=== PATIENT | female | born 1995 | race Caucasian/White ===

== ENCOUNTER → 2017-11-18 19:09 | Outpatient (CLI) | payer MEDICARE, SELFPAY ==
[2017-11-24 09:58] LABS: HPV APTIMA, High Risk Negative (Negative)
== END ==
PROVIDERS: PCP Obstetrics & Gynecology; Visit Provider Obstetrics & Gynecology
DX: Z12.4 Encounter for screening for malignant neoplasm of cervix (principal)
CPT/HCPCS: 88175; G0145

== ENCOUNTER → 2021-06-28 | Outpatient (CLI) | payer MEDICARE, OTHER, SELFPAY ==
[2021-07-02 21:28] LABS: HPV Reflexed? NOT INDICATED
== END | disposition home or self-care (01) ==
PROVIDERS: PCP Obstetrics & Gynecology; Visit Provider Obstetrics & Gynecology
DX: Z12.4 Encounter for screening for malignant neoplasm of cervix (principal)
CPT/HCPCS: 88175; G0145

== ENCOUNTER → 2022-11-04 | Outpatient (CLI) | payer MEDICARE, OTHER, SELFPAY ==
[2022-11-04 16:45] LABS: NATERA MAILED SPECIMEN
== END | disposition home or self-care (01) ==
LOC: PAVLAB 15:40
PROVIDERS: Referring Provider Obstetrics & Gynecology; Visit Provider Obstetrics & Gynecology
DX: Z15.01 Genetic susceptibility to malignant neoplasm of breast (principal)
CPT/HCPCS: 36415

== ENCOUNTER → 2023-08-11 | Outpatient (CLI) | payer MEDICARE, OTHER, SELFPAY ==
--- OUTSIDE RECORDS SUMMARY | 2023-08-11 12:26 | XMS RPT_ITS | CCD ---
Author Name Unknown Address [address] [place] [address] Organization [facility] Care Team Providers Care Oil Agent Name Role Phone Pamelamarcellus Jovanna Unavailable Unavailable Ant Rapp Unavailable Unavailable Tamela DAVID, Ant Huber Primary Care Provider ANT RAPP Primary Care Unavailable GARIMA BRADY Attending Unavailable TAMELA, ANT A Primary Care Unavailable MONROE STARKS Attending Unavailable Ant Rapp MD Primary Care Provider JANA TONG Attending Unavailable TESTRAKE, JANA Referring Unavailable TAMELA, ANT A Primary Care Unavailable TESTRAKE, JANA Referring Unavailable TAMELA, ANT A Primary Care Unavailable WILL ALBRIGHT Referring Unavailable TAMELA, ANT A Primary Care Unavailable TESTRAKEJANA Attending Unavailable TESTRAKE, JANA Referring Unavailable TAMELA, ANT A Primary Care Unavailable TESTRAKE, JANA Attending Unavailable TESTRAKE, JANA Referring Unavailable TAMELA, ANT A Primary Care Unavailable WILL ALBRIGHT Referring Unavailable TAMELA, ANT A Primary Care Unavailable DARIUSZ WILL Referring Unavailable TAMELA, ANT A Primary Care Unavailable TESTRAKE, JANA Attending Unavailable DARIUSZ, WILL Referring Unavailable TAMELA, ANT A Primary Care Unavailable TESTRAKE, JANA Referring Unavailable TAMELA, ANT A Primary Care Unavailable TESTRAKE, JANA Attending Unavailable TESTRAKE, JANA Referring Unavailable TAMELA, ANT A Primary Care Unavailable TESTRAKE, JANA Attending Unavailable TESTRAKE, JANA Referring Unavailable TAMELA, ANT A Primary Care Unavailable WILL ALBRIGHT Attending Unavailable DARIUSZ, WILL Referring Unavailable TAMELA, ANT A Primary Care Unavailable SONDRA GROVES Attending Unavailable TAMELA, ANT A Primary Care Unavailable WILL ALBRIGHT Attending Unavailable WILL ALBRIGHT Referring Unavailable ANT RAPP Primary Care Unavailable SONDRA GROVES Referring Unavailable ANT RAPP Primary Care Unavailable Ant Rapp MD Primary Care Provider [phone] Allergies Allergy Classification Reported Allergen(s) Allergy Type Date of Onset Reaction(s) Facility (3 sources) Penicillins; Translations: [Penicillins] Allergy to drug (finding) 4 Unknown [facility] Repository (14 sources) Penicillins Drug Allergy 4 Rash [facility] Work Phone: (19 sources) Mmr [Other] Propensity to adverse reactions 4 Mental Status Change, Rash [facility] Work Phone: (1 source) MEASLES, MUMPS, RUBELLA,AND VARICELLA LIVE VACCINE; Translations: [MEASLES, MUMPS, RUBELLA,AND VARICELLA LIVE VACCINE] Propensity to adverse reactions to drug (disorder) 4 [facility]ository (5 sources) Penicillins Drug Allergy 4 Rash [facility] Work Phone: (1 source) OTHER; Translations: [OTHER] Propensity to adverse reactions (disorder) 4 [facility] Repository Medications Current Medications Medication Drug Class(es) Dates Sig (Normalized) Sig (Original) acetaminophen 325 mg / oxyCODONE hydrochloride 5 mg oral tablet (2 sources) Opioid Agonist Start: 10-12-2021 End: 10-22-2021 take 1 tablet by mouth every eight hours as needed for pain oxyCODONE-acetami nophen (PERCOCET) 5-325 mg tablet Indications: Hammer toe of right foot Take 1 tablet by mouth every 8 hours as needed for pain for up to 7 days. 21 tablet 0 10/12/2021 10/22/2021 Active Completed/Discontinued Medications Medication Drug Class(es) Dates Sig (Normalized) Sig (Original) amitriptyline hydrochloride 25 mg oral tablet (20 sources) Tricyclic Antidepressant Start: 06-16-2023 take 1 tablet by mouth once daily at bedtime amitriptyline (ELAVIL) 25 mg tablet Take 1 tablet by mouth daily at bedtime. 30 tablet 0 06/16/2023 Active Problems Active Problems Problem Classification Problem Date Documented Date Episodic/Chronic Acquired foot deformities (20 sources) Hammer toe; Translations: [Other hammer toe(s) (acquired), right foot] Onset: 07-10-2021 Chronic Adjustment disorders (19 sources) Reactive depression (situational); Translations: [Adjustment disorder with depressed mood] Onset: 10-01-2021 Chronic Diseases of white blood cells (1 source) Elevated white blood cell count, unspecified; Translations: [Leukocytosis, unspecified type] Onset: 10-01-2021 Chronic Disorders usually diagnosed in infancy, childhood, or adolescence (20 sources) Autistic disorder; Translations: [Autistic disorder] Onset: 03-08-2016 06-17-2016 Chronic Esophageal disorders (19 sources) Gastroesophageal reflux disease; Translations: [Gastro-esophageal reflux disease without esophagitis] Onset: 10-01-2021 Chronic Headache; including migraine (2 sources) Headache; including migraine; Translations: [Headache, unspecified] Onset: 04-02-2022 Nutritional deficiencies (20 sources) Vitamin D deficiency; Translations: [Vitamin D deficiency, unspecified] Onset: 03-30-2019 03-30-2019 Chronic Other connective tissue disease (1 source) Pain of toe of right foot; Translations: [Pain in right toe(s)] Episodic Other nutritional; endocrine; and metabolic disorders (20 sources) Body mass index 40+ - severely obese; Translations: [Morbid (severe) obesity due to excess calories] Onset: 09-19-2017 03-13-2018 Chronic Other nutritional; endocrine; and metabolic disorders (1 source) Morbid (severe) obesity due to excess calories; Translations: [Obesity, Class III, BMI 40-49.9 (morbid obesity) (HCC)] Onset: 03-13-2018 Chronic Other upper respiratory disease (19 sources) Seasonal allergy; Translations: [Other seasonal allergic rhinitis] Onset: 06-17-2016 06-17-2016 Chronic Residual codes; unclassified (3 sources) Postoperative state; Translations: [Other specified postprocedural states] Episodic Thyroid disorders (20 sources) Acquired hypothyroidism; Translations: [Hypothyroidism, unspecified] Onset: 03-08-2016 03-08-2016 Chronic Viral infection (2 sources) Viral infection, unspecified; Translations: [Viral infection, unspecified] Onset: 04-02-2022 Episodic Past or Other Problems Problem Classification Problem Date Documented Date Episodic/Chronic Attention-deficit, conduct, and disruptive behavior disorders (20 sources) Obsessive behavior; Translations: [Obsessive-compulsive behavior] Onset: 12-02-2017 03-13-2018 Episodic Developmental disorders (8 sources) Borderline intellectual disability; Translations: [Borderline intellectual functioning] Onset: 11-19-2021 Episodic Headache; including migraine (20 sources) Frequent headache; Translations: [Frequent headaches] Onset: 03-13-2018 03-13-2018 Episodic Immunizations and screening for infectious disease (2 sources) Encounter for screening for other viral diseases; Translations: [Encounter for screening for human immunodeficiency virus [HIV]] Onset: 11-19-2021 Episodic Other circulatory disease (1 source) Other specified symptoms and signs involving the circulatory and respiratory systems; Translations: [Diminished pulses in lower extremity] Onset: 07-10-2021 Episodic Other connective tissue disease (1 source) Pain in right toe(s); Translations: [Toe pain, right] Onset: 07-09-2021 Episodic Other nutritional; endocrine; and metabolic disorders (19 sources) Abnormal weight gain; Translations: [Abnormal weight gain] Onset: 12-22-2003 12-22-2003 Episodic Other screening for suspected conditions (not mental disorders or infectious disease) (20 sources) Patient encounter status; Translations: [Encounter for screening for diabetes mellitus] Onset: 06-17-2016 06-17-2016 Episodic Residual codes; unclassified (19 sources) Family history of diabetes mellitus; Translations: [Family history of diabetes mellitus] Onset: 03-30-2019 03-30-2019 Episodic Superficial injury; contusion (20 sources) Contusion of eye; Translations: [Contusion of eyeball and orbital tissues, left eye, initial encounter] Onset: 02-16-2019 02-16-2019 Episodic Results Test Name Value Interpretation Reference Range Facil ity Vital Signs Date Time Vital Sign Value Performing Clinician Facility 11-19-2021 11:44-0400 Body temperature 98.91 [degF] Will Albright PA-C Work Phone: [facility] 11-19-2021 11:44-0400 Body weight 113.85 kg Will Albright PA-C Work Phone: [facility] 11-19-2021 11:44-0400 Diastolic blood pressure 80 mm[Hg] Will SAWYER-C Work Phone: [facility] 11-19-2021 11:44-0400 Heart rate 72 /min Will Albright PA-C Work Phone: [facility] 11-19-2021 11:44-0400 Respiratory rate 18 /min Will Albright PA-C Work Phone: [facility] 11-19-2021 11:44-0400 Systolic blood pressure 110 mm[Hg] Will Albright PA-C Work Phone: [facility] 10-01-2021 08:09-0400 Body height 163.8 cm Pacc 1 Work Phone: [facility] 10-01-2021 08:09-0400 Body temperature 97.9 [degF] Pacc 1 Work Phone: [facility] 10-01-2021 08:09-0400 Body weight 114.76 kg Pacc 1 Work Phone: [facility] 10-01-2021 08:09-0400 Diastolic blood pressure 80 mm[Hg] Pacc 1 Work Phone: [facility] 10-01-2021 08:09-0400 Heart rate 116 /min Pacc 1 Work Phone: [facility] 10-01-2021 08:09-0400 Respiratory rate 16 /min Pacc 1 Work Phone: [facility] 10-01-2021 08:09-0400 SaO2% (BldA) [Mass fraction] 98 % Pacc 1 Work Phone: [facility] 10-01-2021 08:09-0400 Systolic blood pressure 110 mm[Hg] Pacc 1 Work Phone: [facility] 04-13-2020 15:50-0400 BMI (Body Mass Index) 43.77 kg/m2 [facility] Work Phone: 04-13-2020 15:50-0400 Body weight 115.67 kg Jovannalashanda Montaño [facility] Work Phone: 04-13-2020 15:50-0400 BP Diastolic 78 mm[Hg] Jovannalashanda Montaño [facility] Work Phone: 04-13-2020 15:50-0400 BP Systolic 128 mm[Hg] Jovannalashanda Montaño [facility] Work Phone: 04-13-2020 15:50-0400 BSA (Body Surface Area) 2.17 m2 Jovannalashanda Montaño [facility] Work Phone: 04-13-2020 15:50-0400 Height 162.56 cm Jovannalashanda Montaño [facility] Work Phone: Encounters Encounter Date Encounter Type Care Provider Facility Start: 06-18-2023 Refgilberto Momin Work Phone: [facility] Procedures Date Procedure Procedure Detail Performing Clinician Start: 08-25-2020 Adult depression screening assessment Jana Tong Work Phone: Plan of Treatment Date Care Activity Detail Author Start: 06-20-2026 Pap Testing Pap Testing [facility] Start: 06-20-2026 Screening for malign ant neoplasm of cervix Pap Testing [facility] Start: 06-17-2026 Urine microalbumin profile [facility] Start: 06-20-2024 PAP TESTING PAP TESTING [facility] Start: 05-21-2023 ANNUAL PCP TEAM SLIP FILLER [place] DISEASE VISIT ANNUAL PCP TEAM CHRONIC DISEASE VISIT [facility] Start: 05-21-2023 COVID-19 VACCINE (2 - Booster for Checo series) COVID-19 VACCINE (2 - Booster for Checo series) [facility] Immunizations Immunization Date Immunization Notes Care Provider Fa cility 10-26-2020 COVID-19 vaccine (CHECO) Jana Tong Work Phone: [facility] 04-17-2018 influenza virus vacc ine, unspecified formulation Sondra Groves MD Work Phone: [facility] 12-19-2016 tetanus toxoid, redu rosa m diphtheria toxoid, and acellular pertussis vaccine, adsorbed Jana Tong Work Phone: [facility] 10-26-2013 measles, mumps and rubella virus vaccine Will Albright PA-C Work Phone: [facility] 07-02-1994 diphtheria, tetanus toxoids and acellular pertussis vaccine, unspecified formulation Will Albright PA-C Work Phone: [facility] 07-02-1994 haemophilus influenz ae type b vaccine, conjugate unspecified formulation Will Albright PA-C Work Phone: [facility] 07-02-1994 hepatitis B vaccine, pediatric or pediatric/adolescent dosage Will Albright PA-C Work Phone: [facility] 07-02-1994 measles, mumps and rubella virus vaccine Will Albright PA-C Work Phone: [facility] 1993 hepatitis B vaccine, pediatric or pediatric/adolescent dosage Will Albright PA-C Work Phone: [facility] 1993 haemophilus influenz ae type b vaccine, conjugate unspecified formulation Will Albright PA-C Work Phone: [facility] 1993 hepatitis B vaccine, pediatric or pediatric/adolescent dosage Will Albright PA-C Work Phone: [facility] 1993 diphtheria, tetanus toxoids and pertussis vaccine Wlil Albright PA-C Work Phone: [facility] 1993 trivalent poliovirus vaccine, live, oral Will Albright PA-C Work Phone: [facility] 1993 diphtheria, tetanus toxoids and pertussis vaccine Will Albright PA-C Work Phone: [facility] 1993 haemophilus influenz ae type b vaccine, conjugate unspecified formulation Will Albright PA-C Work Phone: [facility] 1993 trivalent poliovirus vaccine, live, oral Will Albright PA-C Work Phone: [facility] 1993 diphtheria, tetanus toxoids and pertussis vaccine Will Albright PA-C Work Phone: [facility] 1993 haemophilus influenz ae type b vaccine, conjugate unspecified formulation Will Albright PA-C Work Phone: [facility] 1993 trivalent poliovirus vaccine, live, oral Will Albrgiht PA-C Work Phone: [facility] Payers Date Payer Category Payer Private Health Insurance [employer] PPO [id number] 2019-Present [phone] [address] [place] [address] PPO [id number] 2019 Private Health Insurance [id number] 2019 Private Health Insurance [employer] PPO [id number] 2019-Present [phone] [address] [place] [address] PPO [id number] 2015 Medicare MEDICARE MEDICAR E A AND B [id number] 2015-Present [phone] [place] [address] Medicare [id number] 2015 Medicare [id number] 2015 Medicare MEDICARE MEDICAR E A AND B [id number] 2015-Present [phone] [place] [address] Medicare [id number] 1993 Unknown [id number] 1993 Unknown [id number] Social History Date Type Detail Facility Assertion Tobacco smoking consumption unknown (finding) [facility] Work Phone: Start: 06-17-2016 End: 05-21-2022 Tobacco smoking status NHIS Never smoked tobacco [facility] Work Phone: Start: 06-17-2016 End: 05-21-2022 Tobacco use and exposure Smokeless tobacco non-user [facility] Work Phone: Start: 05-22-2021 Alcohol intake Current drinker of alcohol (finding) [facility] Start: 08-25-2020 History SDOH Alcohol Frequency 1 [facility] Start: 08-25-2020 History SDOH Alcohol Std Drinks 98 [facility] Start: 08-25-2020 History SDOH Social Connections Membership 2 [facility] Start: 08-25-2020 History SDOH Social Connections Living 7 [facility] Start: 08-25-2020 History SDOH Physical Activity DPW 0 [facility] Start: 08-25-2020 History SDOH Stress 5 [facility] Start: 07-28-2019 Education 12 [facility] Start: 1995 Sex Assigned At Female [facility] Start: 10-01-2021 End: 05-21-2022 Alcohol intake Ex-drinker (finding) [facility] Start: 09-21-2021 End: 11-19-2021 Exposure to SARS-CoV-2 (event) Not sure [facility] Start: 08-25-2020 End: 07-26-2022 History of Social function [facility] Start: 08-25-2020 End: 07-26-2022 Social connection and isolation panel [facility] Do you belong to any clubs or organizations such as anglican groups, unions, fraternal or athletic groups, or school groups? No [facility] Are you now , , , , never or living with a partner? Never [facility] How often to you hav e a drink containing alcohol? Never [facility] How many standard dr inks containing alcohol do you have on a typical day? Patient refused [facility] Do you feel stress - tense, restless, nervous, or anxious, or unable to sleep at night because your mind is troubled all the time - these days [OSQ] Very much [facility] (I/We) worried cicicelso er (my/our) food would run out before (I/we) got money to buy more. Never true [facility] Start: 03-11-2020 Gender identity Identifies as female gender (finding) [facility] Start: 03-11-2020 Sexual orientation Heterosexual (finding) [facility] Functional Status Date Assessment Result Facility NEGATED: Highlighted row Functional performance Functional status health issues are not documented Disease [facility] Work Phone: Mental Status Date Assessment Result Facility NEGATED: Highlighted row Cognitive function [Interpretation] Cognitive status health issues are not documented Disease [facility] Work Phone: Clinical Notes 06-28-2021 to 06-19-2023 Telephone Encounter - Lauren Richards MA - 06/19/2023 12:24 PM ESTTelephone Encounter - Theresa Perez RN - 05/23/2023 10:51 AM Jenise Groves MD - 05/14/2022 1:27 PM EST Note Date & Type Note Facility 06-19-2023 Miscellaneous Notes New script for 30 sent to RA Llanos on 06/16 by LINDA. Patient notified via [employer] message. Lauren Richards MA documented in this encounter [facility] 05-23-2023 Miscellaneous Notes Requester: Pharmacy Last Visit in Endocrinology: Provider name: Sondra Groves DO , Date 05/14/2022 Next Scheduled Appt in Endo: Visit date not found Last Refill: Number of Refills given: 1 PSS NOTE: Patient needs scheduled appointment [facility]. Requested Prescriptions Pending Prescriptions Disp Refills levothyroxine 50 mcg cap [Pharmacy Med Name: LEVOTHYROXINE 50 MCG CAPSULE] 90 capsule 1 Sig: take 1 capsule by mouth daily before breakfast Please review and advise. Theresa Perez RN documented in this encounter [facility] 11-01-2022 Miscellaneous Notes Patient has been identified by name and date of : Yes, Provider Dr. Rapp Date 11/01/22 Time 12:41 pm Patient phones for refill(s): Requested Prescriptions Pending Prescriptions Disp Refills amitriptyline (ELAVIL) 25 mg tablet [Pharmacy Med Name: AMITRIPTYLINE HCL 25 MG TAB] 30 tablet 5 Sig: take 1 tablet by mouth at bedtime Date of last office visit in primary care: 05/21/22 next apt 05/26/23 Last 2 Encounter Wt Readings: Date: Wt: 05/21/2022 111.6 kg (246 lb) 11/19/2021 113.9 kg (251 lb) Previous labs/tests for medication: Not applicable Thank you. Jill Michel LPN documented in this encounter [facility] 05-21-2022 Note HNO ID: [id number] Author: Will Albright PA-C Service: ? Author Type: Physician Bus Attendant Type: Progress Notes Filed: 05/21/2022 11:17 AM Note Text: Medicare Yearly Visit Medical B eligibilty date unable to find Date of last exam 05/22/21 PAST MEDICAL HISTORY Diagnosis Date Acquired hypothyroidism 03/08/2016 Autism Frequent headaches 03/13/2018 Obesity, Class III, BMI 40-49.9 (morbid obesity) (HCC) 09/19/2017 Obsessive behavior 12/02/2017 Seasonal allergies 06/17/2016 PAST SURGICAL HISTORY Procedure Laterality Date PAST SURGICAL HISTORY OF wisdom teeth removal, excess gum removal PAST SURGICAL HISTORY OF 02/2020 choleystectomy TENOTOMY OPEN EXTENSOR FOOT/TOE EACH TENDON R foot 4th toe ALLERGIES: Mmr [Other] and Penicillins Medications reviewed: Yes FAMILY HISTORY Problem Relation Age of Onset Cancer Mother thyroid and lung Thyroid Mother hypothyroid Skin Cancer Mother melanoma other (lung cancer) Mother Common on maternal side of family other (thryoid cancer) Mother COPD Father Diabetes Father Paternal side of family Obstructive Sleep Apnea Father Coronary Artery Disease Brother 28 Diabetes Other paternal side Thyroid Other maternal side other (vitamin d issues) Other SOCIAL HISTORY: Social History Tobacco Use Smoking status: Never Smokeless tobacco: Never Vaping Use Vaping Use: Never used Substance Use Topics Alcohol use: Not Currently Drug use: No Celena gets sporadic irregular exercise. She watches her diet for sodium, low fat and low cholesterol most of the time. List of current specialists seen: Endo End of Live Planning discussed including patients advanced directive wishes: Yes I am willing to follow Celena's advanced directives. Functional Ability/Safety Screen 1. Was the patient's timed Up and Go test unsteady or longer than 30 seconds? No 2. Does the patient need help with the phone, transportation, shopping,preparing meals, housework, laundry, medications or managing money? No (some yes with dx of autism) 3. Does your home have rugs in the hallway, lack of grab bars in the bathroom, lack of handrails on the stairs or have poor lighting (N). Yes Hearing Evaluation: normal PHYSICAL EXAM BP 118/82 (BP Site: Left Arm, BP Position: Sitting, BP Cuff Size: Large Adult) Pulse 84 Temp 36.9 ?C (98.5 ?F) Resp 18 Ht 164 cm (5' 4.57 ) Wt 111.6 kg (246 lb) LMP 04/25/2022 (Approximate) BMI 41.49 kg/m? Alert and oriented X 3: YES Body mass index is 41.49 kg/m?. Visual acuity: sees opto ASSESSMENT/PLAN: 27 year old female The following prevention plan was discussed during the office visit and provided to the patient: See below Will Albright PA-C Chief Complaint Patient presents with: Yearly Exam HPI Celena Murray is a 27 year old female who presents here today for extensive exam. Patient with hx of autism, depression, hypothyroidism, Gerd, frequent headaches, allergies, obesity and those as below. Last 3 Encounter Wt Readings: Date: Wt: 05/21/2022 111.6 kg (246 lb) 11/19/2021 113.9 kg (251 lb) 10/01/2021 114.8 kg (253 lb) Past medical history, appointments, medications, allergies reviewed. Previous Medical History PAST MEDICAL HISTORY Diagnosis Date Acquired hypothyroidism 03/08/2016 Autism Frequent headaches 03/13/2018 Obesity, Class III, BMI 40-49.9 (morbid obesity) (HCC) 09/19/2017 Obsessive behavior 12/02/2017 Seasonal allergies 06/17/2016 Previous Surgical History PAST SURGICAL HISTORY Procedure Laterality Date PAST SURGICAL HISTORY OF wisdom teeth removal, excess gum removal PAST SURGICAL HISTORY OF 02/2020 choleystectomy TENOTOMY OPEN EXTENSOR FOOT/TOE EACH TENDON R foot 4th toe Family History FAMILY HISTORY Problem Relation Age of Onset Cancer Mother thyroid and lung Thyroid Mother hypothyroid Skin Cancer Mother melanoma other (lung cancer) Mother Common on maternal side of family other (thryoid cancer) Mother COPD Father Diabetes Father Paternal side of family Obstructive Sleep Apnea Father Coronary Artery Disease Brother 28 Diabetes Other paternal side Thyroid Other maternal side other (vitamin d issues) Other Patient Allergies ALLERGIES Allergen Reactions Mmr [Other] Mental Status Change, Rash Penicillins Rash Current Medications Current Outpatient Medications on File Prior to Visit Medication Sig levothyroxine (TIROSINT) 50 mcg cap Take 1 capsule by mouth daily before breakfast. amitriptyline (ELAVIL) 25 mg tablet Take 1 tablet by mouth daily at bedtime. Olopatadine 0.2 % drop Use 1 Drop in both eyes as needed. [id number] (REFRESH OPTIVE ADVANCED) 0.5-1-0.5 % drop Use 1 Drop in the left eye four times daily. cholecalciferol (VITAMIN D3) 5,000 unit tab Take 5,000 Units by mouth every 48 hours. Fexofenadine-Pseudoephedrine 180-240 mg pe (more content not included)... [facility] 05-14-2022 Note HNO ID: [id number] Author: Sondra Groves MD Service: ? Author Type: Physician Type: Progress Notes Filed: 05/14/2022 1:41 PM Note Text: [facility]OLOGY [facility] This visit was conducted via my chart zoom Subjective: Celena Murray is a 27 year old female here for hypothyroidism, weight gain and vitamin D deficiency follow up. History in brief, she was diagnosed with a thyroid disorder at age 10 yrs, when she suddenly gained weight and TSH was >5. Current treatment: Tirosint 50 mcg daily Prior treatment: Tirosint 25 mcg 6 days a week and 50 mcg on sundays Previous treatment: PROSTHETIC DENTIST thyroid 15 mg 4 days a week and 30 mg 3 days a week She developed arthralgia due to PROSTHETIC DENTIST thyroid She didn't take PROSTHETIC DENTIST thyroid for 4-6 months, thinking that she didn't have refill on her Rx. Recently, restarted taking it 2-3 weeks ago. Since that time, she has noticed diffuse arthralgia She is planning to leave her current job due to the related stress Wants to work morning shifts General symptoms: Fatigue: Yes, by the end of the day Energy level is good Weight change: No Previously, she tried Contrave Appetite change: No Menstrual irregularities: No Change in bowel habits: No Temperature intolerance: heat intolerance Dry skin:Yes, only during winter time. She has chronic headaches and had been Elavil She tried to go off Elavil and headaches restarted. She had a severe migraine, which prompted a visit to ER Previously, she was also found to have vitamin D deficiency She is currently on immunocore-it has 333 international unit(s) vitamin D There is a family history of diabetes Patient has autism Her mother had Papillary thyroid cancer Patient's mother is on cytomel and wants to inquire if patient might benefit from Cytomel. Answers submitted by the patient for this visit: Core Review of Systems (Submitted on 05/14/2022) Fever : No Night Sweats: No Recent Unintentional Weight Change: No Nasal Congestion: No Hearing Loss: No Vision Disturbance: No A Cough: No Difficulty Breathing?: No Chest Pain: No Irregular Heart Beat: No Leg Swelling: No Nausea: No Diarrhea: No Black Tarry Stools: No Difficulty Urinating?: No Awaken at Night More Than Once to Urinate?: No Joint Pain or Stiffness: No Muscle Aches: No Leg or Foot Discomfort at Night?: No A Rash: No Dizziness: No Headaches: Yes Memory Loss: No Seizures: No ALLERGIES: ALLERGIES Allergen Reactions Mmr [Other] Mental Status Change, Rash Penicillins Rash MEDICATIONS: Current Outpatient Medications on File Prior to Visit Medication Sig Levothyroxine (TIROSINT) 25 mcg cap Take 1 capsule by mouth six times a week. And 2 capsules on sundays fheqmhumrldctiz-lqworco-rnro98 (REFRESH OPTIVE ADVANCED) 0.5-1-0.5 % drop Use 1 Drop in the left eye four times daily. cholecalciferol (VITAMIN D-3) 5,000 unit tab Take 5,000 Units by mouth every 48 hours. Fexofenadine-Pseudoephedrine (MICAH-D 24 HOUR) 180-240 mg per 24 hr tablet Take 1 tablet by mouth once daily. No current facility-administered medications on file prior to visit. PAST MEDICAL HISTORY: PAST MEDICAL HISTORY Diagnosis Date Acquired hypothyroidism 03/08/2016 Autism Frequent headaches 03/13/2018 Obesity, Class III, BMI 40-49.9 (morbid obesity) (HCC) 09/19/2017 Obsessive behavior 12/02/2017 Seasonal allergies 06/17/2016 PHYSICAL EXAM: General: Alert and oriented x3, no acute distress LAB: TSH Date Value Ref Range Status 06/28/2021 1.510 0.270 - 4.200 uU/mL Final Comment: If the patient is , TSH reference range varies by gestational period: First Trimester (weeks 9-12): 0.180-2.990 mcIU/mL Second Trimester: 0.110-3.980 mcIU/mL Third Trimester: 0.480-4.710 mcIU/mL Sascha Gaspar et al. A Practical Approach for the Verifications and Determination of Site- and Trimester-Specific Reference Intervals for Thyroid Function tests in . Thyroid, 2019:29:3:412-420. Darío E, et al. 2017 Guidelines of the [place] Thyroid Association for the Diagnosis and Management of Thyroid Disease during and the . Thyroid, 2017:27:3:315-389. Free T4 Date Value Ref Range Status 06/28/2021 1.2 0.9 - 1.7 ng/dL Final Latest Reference Range AND Units 11/19/21 12:47 Vitamin D 25 Hydroxy 31.0 - 80.0 ng/mL 52.3 ASSESSMENT/PLAN: 1) Primary hypothyroidism 2) Vitamin D deficiency Clinically she appears euthyoid Update thyroid function test Then will adjust Tirosint dose if needed Saliva cortisol was normal in 2017, which excludes [place]'s Syndrome Fasting insulin, glucose and A1c were normal Vitamin D level is optimal Continue vitamin D supplements I will send patient a message in my chart once the lab results become available. Follow up in 12 months, if thyroid function are normal Sondra Groves MD 05/14/22 [facility] 05-14-2022 History of Presen t illness Narrative ENDOCRINOLOGY [facility] VISIT This visit was conducted via my chart zoom Subjective: Celena Murray is a 27 year old female here for hypothyroidism, weight gain and vitamin D deficiency follow up. History in brief, she was diagnosed with a thyroid disorder at age 10 yrs, when she suddenly gained weight and TSH was >5. Current treatment: Tirosint 50 mcg daily Prior treatment: Tirosint 25 mcg 6 days a week and 50 mcg on sundays Previous treatment: PROSTHETIC DENTIST thyroid 15 mg 4 days a week and 30 mg 3 days a week She developed arthralgia due to PROSTHETIC DENTIST thyroid She didn't take PROSTHETIC DENTIST thyroid for 4-6 months, thinking that she didn't have refill on her Rx. Recently, restarted taking it 2-3 weeks ago. Since that time, she has noticed diffuse arthralgia She is planning to leave her current job due to the related stress Wants to work morning shifts General symptoms: Fatigue: Yes, by the end of the day Energy level is good Weight change: No Previously, she tried Contrave Appetite change: No Menstrual irregularities: No Change in bowel habits: No Temperature intolerance: heat intolerance Dry skin:Yes, only during winter time. She has chronic headaches and had been Elavil She tried to go off Elavil and headaches restarted. She had a severe migraine, which prompted a visit to ER Previously, she was also found to have vitamin D deficiency She is currently on immunocore-it has 333 international unit(s) vitamin D There is a family history of diabetes Patient has autism Her mother had Papillary thyroid cancer Patient's mother is on cytomel and wants to inquire if patient might benefit from Cytomel. Answers submitted by the patient for this visit: Core Review of Systems (Submitted on 05/14/2022) Fever : No Night Sweats: No Recent Unintentional Weight Change: No Nasal Congestion: No Hearing Loss: No Vision Disturbance: No A Cough: No Difficulty Breathing?: No Chest Pain: No Irregular Heart Beat: No Leg Swelling: No Nausea: No Diarrhea: No Black Tarry Stools: No Difficulty Urinating?: No Awaken at Night More Than Once to Urinate?: No Joint Pain or Stiffness: No Muscle Aches: No Leg or Foot Discomfort at Night?: No A Rash: No Dizziness: No Headaches: Yes Memory Loss: No Seizures: No ALLERGIES: ALLERGIES Allergen Reactions Mmr [Other] Mental Status Change, Rash Penicillins Rash MEDICATIONS: Current Outpatient Medications on File Prior to Visit Medication Sig Levothyroxine (TIROSINT) 25 mcg cap Take 1 capsule by mouth six times a week. And 2 capsules on sundays yewirykjdwsdizd-hcfhbgu-wdhx49 (REFRESH OPTIVE ADVANCED) 0.5-1-0.5 % drop Use 1 Drop in the left eye four times daily. cholecalciferol (VITAMIN D-3) 5,000 unit tab Take 5,000 Units by mouth every 48 hours. Fexofenadine-Pseudoephedrine (MICAH-D 24 HOUR) 180-240 mg per 24 hr tablet Take 1 tablet by mouth once daily. No current facility-administered medications on file prior to visit. PAST MEDICAL HISTORY: PAST MEDICAL HISTORY Diagnosis Date Acquired hypothyroidism 03/08/2016 Autism Frequent headaches 03/13/2018 Obesity, Class III, BMI 40-49.9 (morbid obesity) (HCC) 09/19/2017 Obsessive behavior 12/02/2017 Seasonal allergies 06/17/2016 PHYSICAL EXAM: General: Alert and oriented x3, no acute distress LAB: TSH Date Value Ref Range Status 06/28/2021 1.510 0.270 - 4.200 uU/mL Final Comment: If the patient is , TSH reference range varies by gestational period: First Trimester (weeks 9-12): 0.180-2.990 mcIU/mL Second Trimester: 0.110-3.980 mcIU/mL Third Trimester: 0.480-4.710 mcIU/mL Sascha Gaspar et al. A Practical Approach for the Verifications and Determination of Site- and Trimester-Specific Reference Intervals for Thyroid Function tests in . Thyroid, 2019:29:3:412-420. Darío Rosales, et al. 2017 Guidelines of the [place] Thyroid Association for the Diagnosis and Management of Thyroid Disease during and the . Thyroid, 2017:27:3:315-389. Free T4 Date Value Ref Range Status 06/28/2021 1.2 0.9 - 1.7 ng/dL Final Latest Reference Range & Units 11/19/21 12:47 Vitamin D 25 Hydroxy 31.0 - 80.0 ng/mL 52.3 ASSESSMENT/PLAN: 1) Primary hypothyroidism 2) Vitamin D deficiency Clinically she appears euthyoid Update thyroid function test Then will adjust Tirosint dose if needed Saliva cortisol was normal in 2017, which excludes [place]'s Syndrome Fasting insulin, glucose and A1c were normal Vitamin D level is optimal Continue vitamin D supplements I will send patient a message in my chart once the lab results become available. Follow up in 12 months, if thyroid function are normal Sondra Groves MD 05/14/22 documented in this encounter [facility] 05-06-2022 Miscellaneous Notes Last refill 08/20/21 Qty: 30 with 5 refills MINI 11/19/21 NOV 05/21/22 Yanique Jain LPN documented in this encounter [facility] 11-20-2021 Miscellaneous Notes Patient notified of results and provider's instructions. Patient verbalizes understanding. Yanique Jain LPN Let patient know that her creatinine was a little elevated. Likely from dehydration. Make sure to be drinking plenty of water. Rest of labs are wnl. Hep C and HIV still in process. Will contact her if abnormal. Will Albright PA-C documented in this encounter [facility] 11-19-2021 Note HNO ID: [id number] Author: Will Albright PA-C Service: ? Author Type: Physician Bus Attendant Type: Progress Notes Filed: 11/19/2021 12:23 PM Note Text: Chief Complaint Patient presents with: F/U 6 Month HPI Celenarena Murray is a 26 year old female who presents here today for Chronic Medical Conditions.. Patient with hx of autism, Obsessive behaviors, borderline intellectual disorder, depression, hypothyroidism and those as below. No concerns today. Patient and mom are working on getting her in with some counseling and service to hopefully help her become more self sufficient. 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 Current working for [employer] which is a medical [employer]. 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 She does manage her own medications and refills. Past medical history, appointments, medications, allergies reviewed. Previous Medical History PAST MEDICAL HISTORY Diagnosis Date - Acquired hypothyroidism 03/08/2016 - Autism - Frequent headaches 03/13/2018 - Obesity, Class III, BMI 40-49.9 (morbid obesity) ([facility]) 09/19/2017 - Obsessive behavior 12/02/2017 - Seasonal allergies 06/17/2016 Previous Surgical History PAST SURGICAL HISTORY Procedure Laterality Date - PAST SURGICAL HISTORY OF wisdom teeth removal, excess gum removal - PAST SURGICAL HISTORY OF 02/2020 choleystectomy Family History FAMILY HISTORY Problem Relation Age of Onset - Cancer Mother thyroid and lung - Thyroid Mother hypothyroid - Skin Cancer Mother melanoma - other (lung cancer) Mother Common on maternal side of family - other (thryoid cancer) Mother - COPD Father - Diabetes Father Paternal side of family - Obstructive Sleep Apnea Father - Coronary Artery Disease Brother 28 - Diabetes Other paternal side - Thyroid Other maternal side - other (vitamin d issues) Other Patient Allergies ALLERGIES Allergen Reactions - Mmr [Other] Mental Status Change, Rash - Penicillins Rash Current Medications Current Outpatient Medications on File Prior to Visit Medication Sig - levothyroxine (TIROSINT) 50 mcg cap Take 1 capsule by mouth daily before breakfast. - amitriptyline (ELAVIL) 25 mg tablet Take 1 tablet by mouth daily at bedtime. - Olopatadine (PATADAY) 0.2 % drop Use 1 Drop in both eyes as needed. - xrbkubqadaiorol-gwobygc-txus36 (REFRESH OPTIVE ADVANCED) 0.5-1-0.5 % drop Use 1 Drop in the left eye four times daily. - cholecalciferol (VITAMIN D-3) 5,000 unit tab Take 5,000 Units by mouth every 48 hours. - Fexofenadine-Pseudoephedrine (MICAH-D 24 HOUR) 180-240 mg per 24 hr tablet Take 1 tablet by mouth once daily. - L. acidophilus-L. rhamnosus (PROBIOTIC) 15 billion cell cap Take 1 capsule by mouth once daily. (Patient not taking: Reported on 11/19/2021 ) - doxycycline monohydrate (MONODOX) 100 mg capsule Take 1 capsule by mouth twice daily (Patient not taking: Reported on 11/19/2021 ) - doxycycline hyclate (VIBRAMYCIN) 100 mg capsule Take 1 capsule by mouth twice daily. (Patient not taking: Reported on 11/19/2021 ) No current facility-administered medications on file prior to visit. Social History Social History Tobacco Use - Smoking status: Never Smoker - Smokeless tobacco: Never Used Vaping Use - Vaping Use: Never used Substance Use Topics - Alcohol use: Not Currently - Drug use: No Review of Symptoms REVIEW OF SYSTEMS GENERAL: No weight loss, malaise or fevers NECK: Negative for lumps, goiter, pain and significant neck swelling RESPIRATORY: Negative for cough, hemoptysis, wheezing, COPD, dyspnea or shortness of breath CARDIOVASCULAR: Negative for chest pain, leg swelling, hypertension, CHF or palpitations NEURO: No history of headaches, syncope, paralysis, seizures or tremors EXAM: BP 110/80 (BP Site: Left Arm, BP Position: Sitting, BP Cuff Size: Large Adult) Pulse 72 Temp 37.2 ?C (98.9 ?F) Resp 18 Wt 113.9 kg (251 lb) LMP 10/30/2021 (Approximate) BMI 42.42 kg/m? General Appearance: Well appearing, alert, in no acute distress, well-hydrated, well nourished.. Neck: Supple, no adenopathy; thyroid symmetric, normal size, no bruits. Lungs: Lungs clear to auscultation. No wheezing, rhonchi, rales.. Heart: RRR without murmur, gallop, or rubs. No ectopy. Extremities: No deformities, edema, skin discoloration, clubbing or cyanosis. Good capillary refill. . Peripheral Pulses: Normal. Health Maintenance List HEPATITIS C SCREENING Never done HIV SCREENING Never done PAP TESTING due on 09/21/2019 COVID-19 VACCINE(2 - Booster for Che[employer] series) due on 12/21/2020 INFLUENZA(Season Ended) due on 02/28/2022 ANNUAL PCP TEAM CHRONIC DISEASE VISIT due on 05/22/2022 DTAP,TDAP,TD(6 - Td or Tdap) due on 06/17/2026 MENINGOCOCCAL CONJUGATE Aged Out Data reviewed ASSESSMENT/P (more content not included)... [facility] 11-19-2021 History of Presen t illness Narrative Chief Complaint Patient presents with: F/U 6 Month HPI Celena Murray is a 26 year old female who presents here today for Chronic Medical Conditions.. Patient with hx of autism, Obsessive behaviors, borderline intellectual disorder, depression, hypothyroidism and those as below. No concerns today. Patient and mom are working on getting her in with some counseling and service to hopefully help her become more self sufficient. 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 Current working for [employer] which is a medical [employer]. 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 She does manage her own medications and refills. Past medical history, appointments, medications, allergies reviewed. Previous Medical History PAST MEDICAL HISTORY Diagnosis Date Acquired hypothyroidism 03/08/2016 Autism Frequent headaches 03/13/2018 Obesity, Class III, BMI 40-49.9 (morbid obesity) (HCC) 09/19/2017 Obsessive behavior 12/02/2017 Seasonal allergies 06/17/2016 Previous Surgical History PAST SURGICAL HISTORY Procedure Laterality Date PAST SURGICAL HISTORY OF wisdom teeth removal, excess gum removal PAST SURGICAL HISTORY OF 02/2020 choleystectomy Family History FAMILY HISTORY Problem Relation Age of Onset Cancer Mother thyroid and lung Thyroid Mother hypothyroid Skin Cancer Mother melanoma other (lung cancer) Mother Common on maternal side of family other (thryoid cancer) Mother COPD Father Diabetes Father Paternal side of family Obstructive Sleep Apnea Father Coronary Artery Disease Brother 28 Diabetes Other paternal side Thyroid Other maternal side other (vitamin d issues) Other Patient Allergies ALLERGIES Allergen Reactions Mmr [Other] Mental Status Change, Rash Penicillins Rash Current Medications Current Outpatient Medications on File Prior to Visit Medication Sig levothyroxine (TIROSINT) 50 mcg cap Take 1 capsule by mouth daily before breakfast. amitriptyline (ELAVIL) 25 mg tablet Take 1 tablet by mouth daily at bedtime. Olopatadine (PATADAY) 0.2 % drop Use 1 Drop in both eyes as needed. cmobhtxjcswvgmo-dyhrhmw-exjp27 (REFRESH OPTIVE ADVANCED) 0.5-1-0.5 % drop Use 1 Drop in the left eye four times daily. cholecalciferol (VITAMIN D-3) 5,000 unit tab Take 5,000 Units by mouth every 48 hours. Fexofenadine-Pseudoephedrine (MICAH-D 24 HOUR) 180-240 mg per 24 hr tablet Take 1 tablet by mouth once daily. L. acidophilus-L. rhamnosus (PROBIOTIC) 15 billion cell cap Take 1 capsule by mouth once daily. (Patient not taking: Reported on 11/19/2021 ) doxycycline monohydrate (MONODOX) 100 mg capsule Take 1 capsule by mouth twice daily (Patient not taking: Reported on 11/19/2021 ) doxycycline hyclate (VIBRAMYCIN) 100 mg capsule Take 1 capsule by mouth twice daily. (Patient not taking: Reported on 11/19/2021 ) No current facility-administered medications on file prior to visit. Social History Social History Tobacco Use Smoking status: Never Smoker Smokeless tobacco: Never Used Vaping Use Vaping Use: Never used Substance Use Topics Alcohol use: Not Currently Drug use: No Review of Symptoms REVIEW OF SYSTEMS GENERAL: No weight loss, malaise or fevers NECK: Negative for lumps, goiter, pain and significant neck swelling RESPIRATORY: Negative for cough, hemoptysis, wheezing, COPD, dyspnea or shortness of breath CARDIOVASCULAR: Negative for chest pain, leg swelling, hypertension, CHF or palpitations NEURO: No history of headaches, syncope, paralysis, seizures or tremors EXAM: BP 110/80 (BP Site: Left Arm, BP Position: Sitting, BP Cuff Size: Large Adult) Pulse 72 Temp 37.2 C (98.9 F) Resp 18 Wt 113.9 kg (251 lb) LMP 10/30/2021 (Approximate) BMI 42.42 kg/m General Appearance: Well appearing, alert, in no acute distress, well-hydrated, well nourished.. Neck: Supple, no adenopathy; thyroid symmetric, normal size, no bruits. Lungs: Lungs clear to auscultation. No wheezing, rhonchi, rales.. Heart: RRR without murmur, gallop, or rubs. No ectopy. Extremities: No deformities, edema, skin discoloration, clubbing or cyanosis. Good capillary refill. . Peripheral Pulses: Normal. Health Maintenance List HEPATITIS C SCREENING Never done HIV SCREENING Never done PAP TESTING due on 09/21/2019 COVID-19 VACCINE(2 - Booster for Checo series) due on 12/21/2020 INFLUENZA(Season Ended) due on 02/28/2022 ANNUAL PCP TEAM CHRONIC DISEASE VISIT due on 05/22/2022 DTAP,TDAP,TD(6 - Td or Tdap) due on 06/17/2026 MENINGOCOCCAL CONJUGATE Aged Out Data reviewed ASSESSMENT/PLAN: 1. Autism - ICD9: 299.00, ICD10: F84.0 (primary diagnosis) Stable Continue with counseling 2. Borderline intellectual disability - ICD9: V62.89, ICD10: R41.83 Stable as above 3. Situational depression - ICD9: 309.0, ICD10: F43.21 Stable Continue current management 4. Obsessive behavior - ICD9: 300.3, ICD10: R46.81 stable 5. Acquired hypothyroidism - ICD9: 244.9, ICD10: E03.9 - Instructed patient on importance of taking on an empty stomach either first thing in the morning or at bedtime. Continue with endo 6. Gastroesophageal reflux disease, unspecified whether esophagitis present - ICD9: 530.81, ICD10: K21.9 - stable 7. Frequent headaches - ICD9: 784.0, ICD10: R51.9 improved 8. Obesity, Class III, BMI 40-49.9 (morbid obesity) (HCC) - ICD9: 278.01, ICD10: E66.01 Last 3 Encounter Wt Readings: Date: Wt: 11/19/2021 113.9 kg (251 lb) 10/01/2021 114.8 kg (253 lb) 05/22/2021 115.7 kg (255 lb) Stable - Behavioral intervention F/u in 6 months. Will Albright PA-C Form filled out for patient today. See scanned documents. documented in this encounter [facility] 11-13-2021 Note HNO ID: [id number] Author: Jana Tong Service: ? Author Type: Physician Type: Progress Notes Filed: 11/13/2021 8:51 AM Note Text: FOLLOW UP PODIATRIC OFFICE VISIT Chief Complaint: This 26 year old who presents for follow up:right 4th toe flexor tenotomy Patient presents to clinic for follow-up flexor tenotomy of right 4th toe. Patient is 24 days post-op. She still has some tenderness but it is improving. She also is here for follow-up blister of right 4th toe And right heel. The right heel blister was drained in the ED. The blister of 4th toe was not debrided but has since popped. She states she is doing fine overall. PAIN EVALUATION No data found in the last 1 encounters. Hemoglobin A1C Date Value Ref Range Status 10/03/2020 5.3 4.3 - 5.6 % Final Comment: [place] Diabetes Association guidelines indicate that patients with HgbA1c in the range 5.7-6.4% are at increased risk for development of diabetes, and intervention by lifestyle modification may be beneficial. HgbA1c greater or equal to 6.5% is considered diagnostic of diabetes. PCP: Ant Rapp MD PAST MEDICAL HISTORY Diagnosis Date - Acquired hypothyroidism 03/08/2016 - Autism - Frequent headaches 03/13/2018 - Obesity, Class III, BMI 40-49.9 (morbid obesity) (HCC) 09/19/2017 - Obsessive behavior 12/02/2017 - Seasonal allergies 06/17/2016 Current Outpatient Medications Medication Sig - L. acidophilus-L. rhamnosus (PROBIOTIC) 15 billion cell cap Take 1 capsule by mouth once daily. - doxycycline monohydrate (MONODOX) 100 mg capsule Take 1 capsule by mouth twice daily - doxycycline hyclate (VIBRAMYCIN) 100 mg capsule Take 1 capsule by mouth twice daily. - levothyroxine (TIROSINT) 50 mcg cap Take 1 capsule by mouth daily before breakfast. - amitriptyline (ELAVIL) 25 mg tablet Take 1 tablet by mouth daily at bedtime. - Olopatadine (PATADAY) 0.2 % drop Use 1 Drop in both eyes as needed. - dyxzfnaaczbbxvk-ilxwqjx-yrnd94 (REFRESH OPTIVE ADVANCED) 0.5-1-0.5 % drop Use 1 Drop in the left eye four times daily. - cholecalciferol (VITAMIN D-3) 5,000 unit tab Take 5,000 Units by mouth every 48 hours. - Fexofenadine-Pseudoephedrine (MICAH-D 24 HOUR) 180-240 mg per 24 hr tablet Take 1 tablet by mouth once daily. No current facility-administered medications for this visit. ALLERGIES Allergen Reactions - Mmr [Other] Mental Status Change, Rash - Penicillins Rash PAST SURGICAL HISTORY Procedure Laterality Date - PAST SURGICAL HISTORY OF wisdom teeth removal, excess gum removal - PAST SURGICAL HISTORY OF 02/2020 choleystectomy Physical Exam: OBJECTIVE: Constitutional: Pt is a well developed 26 year old female who is alert, oriented, cooperative and in no apparent distress. Eyes: Following during examination. No redness or drainage. Respiratory: RR normal and nonlabored. Even breathing. No evidence of distress. Psychology: Patient is engaged during conversation. Normal affect and mood. Does not appear depressed or anxious. NVSI unchanged from previous visit. Dermatological: Surgical incision is now healed to right 4th toe without signs of infection Blister of right heel is now healed without signs of infection. Musculoskeletal/Orthopaedic: Patient has no pain to palpation of right foot Right 4th toe is rectus. ASSESSMENT: (M20.41) Hammer toe of right foot (primary encounter diagnosis) (Z98.890) Post-operative state PLAN: Patient is 24 days post-op from flexor tenotomy. Her toe is now healed. Prior blister to right heel and right 4th toe is now healed Ok to resume activity as tolerated Patient very happy with outcome. Reminded patient she does have some arthritis in dipj and if she develops pain, fusion could be next option. F/u prn [facility] 11-13-2021 Note HNO ID: [id number] Author: Ramila Omer RN Service: ? Author Type: Registered Nurse Type: Progress Notes Filed: 11/13/2021 8:51 AM Note Text: Patient presents with: Right Foot - Established Patient, Follow Up, Post Op [facility] 11-13-2021 Instructions Jana Tong - 11/13/2021 8:45 AM EDT No restrictions. Ok to leave toe open to air as all blisters are now healed documented in this encounter [facility] 11-13-2021 History of Presen t illness Narrative FOLLOW UP PODIATRIC OFFICE VISIT Chief Complaint: This 26 year old who presents for follow up:right 4th toe flexor tenotomy Patient presents to clinic for follow-up flexor tenotomy of right 4th toe. Patient is 24 days post-op. She still has some tenderness but it is improving. She also is here for follow-up blister of right 4th toe And right heel. The right heel blister was drained in the ED. The blister of 4th toe was not debrided but has since popped. She states she is doing fine overall. PAIN EVALUATION No data found in the last 1 encounters. Hemoglobin A1C Date Value Ref Range Status 10/03/2020 5.3 4.3 - 5.6 % Final Comment: [place] [employer] guidelines indicate that patients with HgbA1c in the range 5.7-6.4% are at increased risk for development of diabetes, and intervention by lifestyle modification may be beneficial. HgbA1c greater or equal to 6.5% is considered diagnostic of diabetes. PCP: Ant Rapp MD PAST MEDICAL HISTORY Diagnosis Date Acquired hypothyroidism 03/08/2016 Autism Frequent headaches 03/13/2018 Obesity, Class III, BMI 40-49.9 (morbid obesity) (HCC) 09/19/2017 Obsessive behavior 12/02/2017 Seasonal allergies 06/17/2016 Current Outpatient Medications Medication Sig L. acidophilus-L. rhamnosus (PROBIOTIC) 15 billion cell cap Take 1 capsule by mouth once daily. doxycycline monohydrate (MONODOX) 100 mg capsule Take 1 capsule by mouth twice daily doxycycline hyclate (VIBRAMYCIN) 100 mg capsule Take 1 capsule by mouth twice daily. levothyroxine (TIROSINT) 50 mcg cap Take 1 capsule by mouth daily before breakfast. amitriptyline (ELAVIL) 25 mg tablet Take 1 tablet by mouth daily at bedtime. Olopatadine (PATADAY) 0.2 % drop Use 1 Drop in both eyes as needed. azuhwvqljrmmlee-jivphxr-[id number] (REFRESH OPTIVE ADVANCED) 0.5-1-0.5 % drop Use 1 Drop in the left eye four times daily. cholecalciferol (VITAMIN D-3) 5,000 unit tab Take 5,000 Units by mouth every 48 hours. Fexofenadine-Pseudoephedrine (MICAH-D 24 HOUR) 180-240 mg per 24 hr tablet Take 1 tablet by mouth once daily. No current facility-administered medications for this visit. ALLERGIES Allergen Reactions Mmr [Other] Mental Status Change, Rash Penicillins Rash PAST SURGICAL HISTORY Procedure Laterality Date PAST SURGICAL HISTORY OF wisdom teeth removal, excess gum removal PAST SURGICAL HISTORY OF 02/2020 choleystectomy Physical Exam: OBJECTIVE: Constitutional: Pt is a well developed 26 year old female who is alert, oriented, cooperative and in no apparent distress. Eyes: Following during examination. No redness or drainage. Respiratory: RR normal and nonlabored. Even breathing. No evidence of distress. Psychology: Patient is engaged during conversation. Normal affect and mood. Does not appear depressed or anxious. NVSI unchanged from previous visit. Dermatological: Surgical incision is now healed to right 4th toe without signs of infection Blister of right heel is now healed without signs of infection. Musculoskeletal/Orthopaedic: Patient has no pain to palpation of right foot Right 4th toe is rectus. ASSESSMENT: (M20.41) Hammer toe of right foot (primary encounter diagnosis) (Z98.890) Post-operative state PLAN: Patient is 24 days post-op from flexor tenotomy. Her toe is now healed. Prior blister to right heel and right 4th toe is now healed Ok to resume activity as tolerated Patient very happy with outcome. Reminded patient she does have some arthritis in dipj and if she develops pain, fusion could be next option. F/u prn Patient presents with: Right Foot - Established Patient, Follow Up, Post Op documented in this encounter [facility] 11-06-2021 Miscellaneous Notes Pts mother called and is notified of providers results and instructions. She voices understanding. Ariana Marquez RN Called and left a voicemail for the Patient to call back and ask for a nurse to receive the providers message. Ariana Marquez RN If they can drop them off so I can review that way I can make sure I have everything we need or may need extra documentation during her visit. Thanks. Will Albright PA-C Patient mother Leah calling she has insurance forms for disabled re-certification that needs to be completed. Asking if she should drop them off or bring them in for her appt on 11/19 with Will? Mother said Will had completed these forms before. Please advise documented in this encounter [facility] 11-03-2021 Miscellaneous Notes Patient returned call. She has large blister to the back of her heel. She has small blister just distal to her incision that appears healed. None appear infected via pic she sent me. If she is having pain, she can present to ed and have the blisters drained. I offered patient follow-up next week for evaluation. She states the 4th toe appears healed and she feels well. She states the blister of heel started because she was trying to keep pressure off of the toe. Recommend she take the weekend off and allow blister to heal. Jana Tong DPM I tried to call kendall but no answer. Left vm for her to contact me Jana Tong DPM Pt. mother called. States daughter returned to work on Friday. Now toe is black and blue and incision is crusty. Pt. rates pain at 5 on 0-10 scale when resting. Please advise. Ramila Omer, RN documented in this encounter [facility] 10-30-2021 Note HNO ID: [id number] Author: Jana Tong Service: ? Author Type: Physician Type: Progress Notes Filed: 10/30/2021 1:11 PM Note Text: FOLLOW UP PODIATRIC OFFICE VISIT Chief Complaint: This 26 year old who presents for follow up:right 4th toe flexor tenotomy Patient presents to clinic for follow-up flexor tenotomy Patient has no pain. She continues with topical wound care to right 4th toe. She has no other complaints PAIN EVALUATION No data found in the last 1 encounters. Hemoglobin A1C Date Value Ref Range Status 10/03/2020 5.3 4.3 - 5.6 % Final Comment: [place] [employer] guidelines indicate that patients with HgbA1c in the range 5.7-6.4% are at increased risk for development of diabetes, and intervention by lifestyle modification may be beneficial. HgbA1c greater or equal to 6.5% is considered diagnostic of diabetes. PCP: Ant Rapp MD PAST MEDICAL HISTORY Diagnosis Date - Acquired hypothyroidism 03/08/2016 - Autism - Frequent headaches 03/13/2018 - Obesity, Class III, BMI 40-49.9 (morbid obesity) (HCC) 09/19/2017 - Obsessive behavior 12/02/2017 - Seasonal allergies 06/17/2016 Current Outpatient Medications Medication Sig - L. acidophilus-L. rhamnosus (PROBIOTIC) 15 billion cell cap Take 1 capsule by mouth once daily. - levothyroxine (TIROSINT) 50 mcg cap Take 1 capsule by mouth daily before breakfast. - amitriptyline (ELAVIL) 25 mg tablet Take 1 tablet by mouth daily at bedtime. - Olopatadine (PATADAY) 0.2 % drop Use 1 Drop in both eyes as needed. - [id number]-[id number] (REFRESH OPTIVE ADVANCED) 0.5-1-0.5 % drop Use 1 Drop in the left eye four times daily. - cholecalciferol (VITAMIN D-3) 5,000 unit tab Take 5,000 Units by mouth every 48 hours. - Fexofenadine-Pseudoephedrine (MICAH-D 24 HOUR) 180-240 mg per 24 hr tablet Take 1 tablet by mouth once daily. - doxycycline monohydrate (MONODOX) 100 mg capsule Take 1 capsule by mouth twice daily (Patient not taking: Reported on 10/26/2021 ) - doxycycline hyclate (VIBRAMYCIN) 100 mg capsule Take 1 capsule by mouth twice daily. (Patient not taking: Reported on 10/26/2021 ) No current facility-administered medications for this visit. ALLERGIES Allergen Reactions - Mmr [Other] Mental Status Change, Rash - Penicillins Rash PAST SURGICAL HISTORY Procedure Laterality Date - PAST SURGICAL HISTORY OF wisdom teeth removal, excess gum removal - PAST SURGICAL HISTORY OF 02/2020 choleystectomy Physical Exam: OBJECTIVE: Constitutional: Pt is a well developed 26 year old female who is alert, oriented, cooperative and in no apparent distress. Eyes: Following during examination. No redness or drainage. Respiratory: RR normal and nonlabored. Even breathing. No evidence of distress. Psychology: Patient is engaged during conversation. Normal affect and mood. Does not appear depressed or anxious. NVSI unchanged from previous visit. Dermatological: Surgical incision to right 4th toe is healed deep but due to maceration, has small blstering/abrasion of skin. No local signs of infection. Musculoskeletal/Orthopaedic: Patient has no pain to palpation of right foot Right 4th toe is rectus. ASSESSMENT: (M20.41) Hammer toe of right foot (primary encounter diagnosis) (Z98.890) Post-operative state PLAN: Patient is s/p flexor tenotomy of right 4th toe. The toe is now rectus. Patient has no pain and has not found the toes rubbing. She is very happy She does have superficial wound the likely result of moisture. All suture removed today. Will have patient treat the 4th toe with aquacel to help reduce maceration. Once resolved, can return to small amount of neosporin F/u in 2 weeks Call if any issues arise Jana Tong DPM [facility] 10-30-2021 History of Presen t illness Narrative FOLLOW UP PODIATRIC OFFICE VISIT Chief Complaint: This 26 year old who presents for follow up:right 4th toe flexor tenotomy Patient presents to clinic for follow-up flexor tenotomy Patient has no pain. She continues with topical wound care to right 4th toe. She has no other complaints PAIN EVALUATION No data found in the last 1 encounters. Hemoglobin A1C Date Value Ref Range Status 10/03/2020 5.3 4.3 - 5.6 % Final Comment: [place] [employer] guidelines indicate that patients with HgbA1c in the range 5.7-6.4% are at increased risk for development of diabetes, and intervention by lifestyle modification may be beneficial. HgbA1c greater or equal to 6.5% is considered diagnostic of diabetes. PCP: Ant Rapp MD PAST MEDICAL HISTORY Diagnosis Date Acquired hypothyroidism 03/08/2016 Autism Frequent headaches 03/13/2018 Obesity, Class III, BMI 40-49.9 (morbid obesity) ([facility]) 09/19/2017 Obsessive behavior 12/02/2017 Seasonal allergies 06/17/2016 Current Outpatient Medications Medication Sig L. acidophilus-L. rhamnosus (PROBIOTIC) 15 billion cell cap Take 1 capsule by mouth once daily. levothyroxine (TIROSINT) 50 mcg cap Take 1 capsule by mouth daily before breakfast. amitriptyline (ELAVIL) 25 mg tablet Take 1 tablet by mouth daily at bedtime. Olopatadine (PATADAY) 0.2 % drop Use 1 Drop in both eyes as needed. ytihnogwmuepmbp-kjmtxku-qzzw15 (REFRESH OPTIVE ADVANCED) 0.5-1-0.5 % drop Use 1 Drop in the left eye four times daily. cholecalciferol (VITAMIN D-3) 5,000 unit tab Take 5,000 Units by mouth every 48 hours. Fexofenadine-Pseudoephedrine (MICAH-D 24 HOUR) 180-240 mg per 24 hr tablet Take 1 tablet by mouth once daily. doxycycline monohydrate (MONODOX) 100 mg capsule Take 1 capsule by mouth twice daily (Patient not taking: Reported on 10/26/2021 ) doxycycline hyclate (VIBRAMYCIN) 100 mg capsule Take 1 capsule by mouth twice daily. (Patient not taking: Reported on 10/26/2021 ) No current facility-administered medications for this visit. ALLERGIES Allergen Reactions Mmr [Other] Mental Status Change, Rash Penicillins Rash PAST SURGICAL HISTORY Procedure Laterality Date PAST SURGICAL HISTORY OF wisdom teeth removal, excess gum removal PAST SURGICAL HISTORY OF 02/2020 choleystectomy Physical Exam: OBJECTIVE: Constitutional: Pt is a well developed 26 year old female who is alert, oriented, cooperative and in no apparent distress. Eyes: Following during examination. No redness or drainage. Respiratory: RR normal and nonlabored. Even breathing. No evidence of distress. Psychology: Patient is engaged during conversation. Normal affect and mood. Does not appear depressed or anxious. NVSI unchanged from previous visit. Dermatological: Surgical incision to right 4th toe is healed deep but due to maceration, has small blstering/abrasion of skin. No local signs of infection. Musculoskeletal/Orthopaedic: Patient has no pain to palpation of right foot Right 4th toe is rectus. ASSESSMENT: (M20.41) Hammer toe of right foot (primary encounter diagnosis) (Z98.890) Post-operative state PLAN: Patient is s/p flexor tenotomy of right 4th toe. The toe is now rectus. Patient has no pain and has not found the toes rubbing. She is very happy She does have superficial wound the likely result of moisture. All suture removed today. Will have patient treat the 4th toe with aquacel to help reduce maceration. Once resolved, can return to small amount of neosporin F/u in 2 weeks Call if any issues arise Jana Tong DPM documented in this encounter [facility] 10-30-2021 Instructions Jana Tong - 10/30/2021 8:12 AM EDT Your wound has healed deep. It has superficial opening likely due to moisture. Will apply aquacel until wound scabs over. Once scabbed over, can treat with topical antibiotic. If your wound is moist, use the aquacel and hold on neosporin. Ok to wear regular shoe Keep it dry until healed F/u in 2 weeks or as needed documented in this encounter [facility] 10-26-2021 Note HNO ID: [id number] Author: Jana Tong Service: ? Author Type: Physician Type: Progress Notes Filed: 10/26/2021 9:48 AM Note Text: DOS: 10/15/21 POD: 11 POV: 2 Surgical side: right This 26 year old presents post op flexor tenotomy right 4th toe Pain level: 0 Vomiting, fever, chills, shortness of breath: no Pain Control: n/a Weightbearing status: Full weight bearing in surgical shoe 5.3 (10/03/2020) PAST MEDICAL HISTORY Diagnosis Date - Acquired hypothyroidism 03/08/2016 - Autism - Frequent headaches 03/13/2018 - Obesity, Class III, BMI 40-49.9 (morbid obesity) ([facility]) 09/19/2017 - Obsessive behavior 12/02/2017 - Seasonal allergies 06/17/2016 Current Outpatient Medications Medication Sig - L. acidophilus-L. rhamnosus (PROBIOTIC) 15 billion cell cap Take 1 capsule by mouth once daily. - levothyroxine (TIROSINT) 50 mcg cap Take 1 capsule by mouth daily before breakfast. - amitriptyline (ELAVIL) 25 mg tablet Take 1 tablet by mouth daily at bedtime. - Olopatadine (PATADAY) 0.2 % drop Use 1 Drop in both eyes as needed. - lweuubrasbfjclp-jbvgawn-rbco19 (REFRESH OPTIVE ADVANCED) 0.5-1-0.5 % drop Use 1 Drop in the left eye four times daily. - cholecalciferol (VITAMIN D-3) 5,000 unit tab Take 5,000 Units by mouth every 48 hours. - Fexofenadine-Pseudoephedrine (MICAH-D 24 HOUR) 180-240 mg per 24 hr tablet Take 1 tablet by mouth once daily. - doxycycline monohydrate (MONODOX) 100 mg capsule Take 1 capsule by mouth twice daily (Patient not taking: Reported on 10/26/2021 ) - doxycycline hyclate (VIBRAMYCIN) 100 mg capsule Take 1 capsule by mouth twice daily. (Patient not taking: Reported on 10/26/2021 ) No current facility-administered medications for this visit. ALLERGIES Allergen Reactions - Mmr [Other] Mental Status Change, Rash - Penicillins Rash Objective: Incision site is well coapted with no evidence of dehiscence. There is mild pressure from suture along central incision but no dehiscence or signs of infection noted. no erythema and edema surrounding surgical site. No drainage. No lymphadenopathy. No lymphangitis. No surrounding cellulitis. Right 4th toe is now rectus Patient has no pain to palpation of right calf. Negative Wilks's test. Assessment: (M20.41) Hammer toe of right foot (primary encounter diagnosis) Post-op state Plan: Patient was examined and informed of current findings She is s/p flexor tenotomy of right 4th toe. Right 4th toe is now rectus. Patient very happy On exam, the central incision was getting pressure from knot of suture. The incision is mostly healed. I removed 2 of the 3 suture but left one intact. I want patient to apply betadine to incision every 2 days and can apply guaze to toe F/u in 4 days for last suture removal Jana Tong DPM [facility] 10-26-2021 Note HNO ID: [id number] Author: Isaura Prescott RN Service: ? Author Type: ? Type: Progress Notes Filed: 10/26/2021 9:48 AM Note Text: Patient presents with: Right 4th Toe - Post Op, Flexor Tenotomy Patient is 11 days post flexor tenotomy R 4th toe. Denies pain. [facility] 10-26-2021 History of Presen t illness Narrative DOS: 10/15/21 POD: 11 POV: 2 Surgical side: right This 26 year old presents post op flexor tenotomy right 4th toe Pain level: 0 Vomiting, fever, chills, shortness of breath: no Pain Control: n/a Weightbearing status: Full weight bearing in surgical shoe 5.3 (10/03/2020) PAST MEDICAL HISTORY Diagnosis Date Acquired hypothyroidism 03/08/2016 Autism Frequent headaches 03/13/2018 Obesity, Class III, BMI 40-49.9 (morbid obesity) (HCC) 09/19/2017 Obsessive behavior 12/02/2017 Seasonal allergies 06/17/2016 Current Outpatient Medications Medication Sig L. acidophilus-L. rhamnosus (PROBIOTIC) 15 billion cell cap Take 1 capsule by mouth once daily. levothyroxine (TIROSINT) 50 mcg cap Take 1 capsule by mouth daily before breakfast. amitriptyline (ELAVIL) 25 mg tablet Take 1 tablet by mouth daily at bedtime. Olopatadine (PATADAY) 0.2 % drop Use 1 Drop in both eyes as needed. lmevehwbdygxmxe-djhijip-qiam67 (REFRESH OPTIVE ADVANCED) 0.5-1-0.5 % drop Use 1 Drop in the left eye four times daily. cholecalciferol (VITAMIN D-3) 5,000 unit tab Take 5,000 Units by mouth every 48 hours. Fexofenadine-Pseudoephedrine (MICAH-D 24 HOUR) 180-240 mg per 24 hr tablet Take 1 tablet by mouth once daily. doxycycline monohydrate (MONODOX) 100 mg capsule Take 1 capsule by mouth twice daily (Patient not taking: Reported on 10/26/2021 ) doxycycline hyclate (VIBRAMYCIN) 100 mg capsule Take 1 capsule by mouth twice daily. (Patient not taking: Reported on 10/26/2021 ) No current facility-administered medications for this visit. ALLERGIES Allergen Reactions Mmr [Other] Mental Status Change, Rash Penicillins Rash Objective: Incision site is well coapted with no evidence of dehiscence. There is mild pressure from suture along central incision but no dehiscence or signs of infection noted. no erythema and edema surrounding surgical site. No drainage. No lymphadenopathy. No lymphangitis. No surrounding cellulitis. Right 4th toe is now rectus Patient has no pain to palpation of right calf. Negative Wilks's test. Assessment: (M20.41) Hammer toe of right foot (primary encounter diagnosis) Post-op state Plan: Patient was examined and informed of current findings She is s/p flexor tenotomy of right 4th toe. Right 4th toe is now rectus. Patient very happy On exam, the central incision was getting pressure from knot of suture. The incision is mostly healed. I removed 2 of the 3 suture but left one intact. I want patient to apply betadine to incision every 2 days and can apply guaze to toe F/u in 4 days for last suture removal Jana Tong DPM Patient presents with: Right 4th Toe - Post Op, Flexor Tenotomy Patient is 11 days post flexor tenotomy R 4th toe. Denies pain. documented in this encounter [facility] 10-26-2021 Instructions Isaura Prescott RN - 10/26/2021 8:24 AM EDT Apply betadine daily to suture. Cover with gauze. Follow up next week documented in this encounter [facility] 10-19-2021 Note HNO ID: [id number] Author: Jana Tong Service: ? Author Type: Physician Type: Progress Notes Filed: 10/19/2021 8:57 AM Note Text: DOS: 10/15/21 POD: 4 POV: 1 Surgical side: right This 26 year old presents post op flexor tenotomy, right 4th toe Pain level: improving Vomiting, fever, chills, shortness of breath: no Pain Control: Percocet but only took 2 Weightbearing status: Full weightbearing with post-op shoe Objective: Incision site is well coapted with no evidence of dehiscence. No erythema and edema surrounding surgical site. No drainage. No lymphadenopathy. No lymphangitis. No surrounding cellulitis. Patient has no pain to palpation of right calf. Negative Wilks's test. Assessment: (M20.41) Hammer toe of right foot (primary encounter diagnosis) (Z98.890) Post-operative state Plan: Bandage removed and new dressing applied. She can change dressing every 2-3 days with betadine and guaze Sutures: plan for possible removal at 10 days post-op Weightbearing status: weightbearing in post-op shoe RTC 1 week Informed patient that some swelling present, likely bursitis and should improve now that the toe is corrected. If this does not correct, fusion of dipj would be an option. Jana Tong DPM [facility] 10-19-2021 History of Presen t illness Narrative DOS: 10/15/21 POD: 4 POV: 1 Surgical side: right This 26 year old presents post op flexor tenotomy, right 4th toe Pain level: improving Vomiting, fever, chills, shortness of breath: no Pain Control: Percocet but only took 2 Weightbearing status: Full weightbearing with post-op shoe Objective: Incision site is well coapted with no evidence of dehiscence. No erythema and edema surrounding surgical site. No drainage. No lymphadenopathy. No lymphangitis. No surrounding cellulitis. Patient has no pain to palpation of right calf. Negative Wilks's test. Assessment: (M20.41) Hammer toe of right foot (primary encounter diagnosis) (Z98.890) Post-operative state Plan: Bandage removed and new dressing applied. She can change dressing every 2-3 days with betadine and guaze Sutures: plan for possible removal at 10 days post-op Weightbearing status: weightbearing in post-op shoe RTC 1 week Informed patient that some swelling present, likely bursitis and should improve now that the toe is corrected. If this does not correct, fusion of dipj would be an option. Jana Tong DPM documented in this encounter [facility] 10-19-2021 Instructions Jana Tong - 10/19/2021 8:52 AM EDT Continue with post-op shoe Apply bandage with betadine every 2-3 days Call philliprake at [phone] with any questions. documented in this encounter [facility] 10-15-2021 Miscellaneous Notes I attempted to contact patient to check in on her. No answer. I reminded her to keep her dressing clean and dry. She is not to remove. She can f/u as scheduled later this week. I provided her with my Number if she has any questions. Jana Tong DPM documented in this encounter [facility] 10-15-2021 Note HNO ID: [id number] Author: Ant Santiago RT(R) Service: Radiology Author Type: Technologist Type: Progress Notes Filed: 10/15/2021 10:33 AM Note Text: Radiology Service Progress Note PATIENT NAME: Celena Murray DATE OF SERVICE: October 15, 2021 TIME: 10:32 AM PATIENT IDENTITY VERIFICATION COMPLETED USING TWO (2) IDENTIFIERS: Name and Date of confirmed by patient verbally. FALL SCREENING: Has the patient had 2 falls in the last year or 1 fall with injury or currently using an Ambulatory Assistive Device (Walker, Cane, Wheelchair, Crutches, etc.)? No PATIENT GENDER DATA: Female. status: : No status: N/A PATIENT RELEVANT IMPLANT DATA REVIEWED: Not Applicable RADIOLOGY DEPARTMENT: General X-ray: Exam(s) Completed: Lower Extremity X-Ray(s): Foot, Right PERIPHERAL IV DATA: Not applicable SIGNED BY: Ant Santiago, RT(R) October 15, 2021 10:32 AM [facility] 10-15-2021 Note HNO ID: [id number] Author: Alva Morin DPM Service: Podiatry Author Type: Resident Type: Progress Notes Filed: 10/15/2021 8:14 AM Note Text: Attestation signed by Jana Tong at 10/15/2021 8:23 AM I was present and personally evaluated patient. Will plan for flexor tenotomy of right 4th toe PODIATRIC PRE-OPERATIVE NOTE SERVICE DATE: 10/15/2021 SERVICE TIME: 8:13 AM DIAGNOSIS: Hammertoe 4th and 5th digit, right foot PROCEDURE(S): Flexor tenotomy, 4th and 5th digit, right foot Consent on chart: Yes LABS: CBC: WBC 8.12 10/01/2021 Hemoglobin 13.7 10/01/2021 Hematocrit 41.3 10/01/2021 Platelet Count 300 10/01/2021 CMP: Sodium 143 08/25/2020 Potassium 3.9 08/25/2020 BUN 16 08/25/2020 Creatinine 0.87 08/25/2020 Glucose 63 08/25/2020 COAGS: APTT 28.7 03/13/2018 PT INR 1.0 03/13/2018 URINALYSIS: No results found for this basename: uket,nitrites,spgr,uprot,leukest ,uwbc,ubacteria Type AND screen: No Medical Clearance: Yes CXR/EKG: No Medications/Preop Antibiotics: Clindamycin ALLERGIES Allergen Reactions - Mmr [Other] Mental Status Change, Rash - Penicillins Rash Surgical site identified: Yes NPO: Yes IV Fluids: Yes Risks and benefits, complications, treatment options, expected outcome and rehabilitation explained, patient understands. All questions were entertained and answered. Patient wishes to proceed with above procedure(s). SIGNATURE: Alva Morin DPM PATIENT NAME: Celena Murray DATE: October 15, 2021 TIME: 8:13 AM PAGER: [facility] 10-01-2021 Miscellaneous Notes Repeat CBC is normal. Infinio message sent. documented in this encounter [facility] 10-01-2021 History and physical note HISTORY AND PHYSICAL EXAMINATION SERVICE DATE: 10/01/2021 SERVICE TIME: 8:25 AM PRIMARY CARE PHYSICIAN: Ant Rapp MD REASON FOR VISIT: Celena Murray is a 26 year old female who is scheduled for Procedure(s): TENOTOMY TOE, PERCUTANEOUS, MULTIPLE TENDONS (Right) at the request of Dr. Jana Tong for consultation. My final recommendation will be communicated back to the requesting physician by way of shared medical record or letter. Subjective The patient has the following: ACTIVE PROBLEM LIST Abnormal Weight Gain Acquired Hypothyroidism Autism Seasonal Allergies Encounter for Gynecological Examination Without Abnormal Finding Encounter for Screening for Diabetes Mellitus Encounter for Screening for Cardiovascular Disorders Obesity, Class Iii, Bmi 40-49.9 (Morbid Obesity) (Hcc) Obsessive Behavior Frequent Headaches Medicare Annual Wellness Visit, Subsequent Injury of Eye, Contusion, Left, Initial Encounter Left Corneal Abrasion Family History of Diabetes Mellitus Vitamin D Deficiency Gerd (Gastroesophageal Reflux Disease) Situational Depression Hammer Toe COVID-19 Immunization Status Overdue - COVID-19 VACCINE (2 - Booster for [employer] series) Overdue since 12/21/2020 10/26/2020 Imm Admin: COVID-19 vaccine (CHECO) CHIEF COMPLAINT: Pre-op exam HPI: MARIA A is a 26 yo seen for PAC due to scheduled above surgery because of hammer toes. 09/18/2021 Dr. Tong Chief Complaint: This 26 year old who presents to clinic virtually for evaluation of hammertoe of right 4th and 5th toe Patient is seen virtually for follow-up hammertoe of right 4th and 5th toe. Patient has pain between the toes. She is interested in discussing surgical intervention. REVIEW OF SYSTEMS: General: No weight loss, malaise or fevers. Neurological: No history of TIA's, stroke, MERCHANDISE CLERK tumor, impaired sensorium, hemiplegia, paraplegia or quadraplegia. No neurological symptoms or problems. Positive for: headaches (otc analgesics as needed). Respiratory: No history of current cough or dyspnea, or pneumonia in the past 6 weeks. No history of respiratory/pulmonary symptoms or problems. Cardiovascular: No history of HTN requiring medication, no history of angina, CHF, DE, cardiac surgery or stents. Denies rest pain, gangrene or revascularization/amputation for PVD. No history of cardiovascular symptoms or problems. GI: Positive for: GERD (otc rx as needed) Negative for: abdominal pain, dysphagia, hepatitis, irritable bowel syndrome, inflammatory bowel disease, liver disease, nausea, pancreatitis, vomiting and ETOH >2 drinks/day. : No history of dysuria, frequency or incontinence, stones or chronic kidney disease. No difficulty urinating, nocturia > 1 time per night or hematuria. TILE EDGER: Negative for abnormal vaginal bleeding, abnormal vaginal discharge. Endocrine: Positive for: hypothyroidism (on rx). Negative for: diabetes mellitus. Hematology: No history of bleeding or clotting disorder. Patient is not taking anti-coagulation or platelet medications. No history of hematological symptoms or problems. Oncology: No history of CA metastasis, chemo within 30 days, or radiotherapy within 90 days. No history of oncological symptoms or problems. Psych: +autism, high functioning Positive for: depression (situational, on rx). Musculoskeletal: SEE HPI Skin: Negative for lesions, rash and itching. PAST MEDICAL HISTORY Diagnosis Date Acquired hypothyroidism 03/08/2016 Autism Frequent headaches 03/13/2018 Obesity, Class III, BMI 40-49.9 (morbid obesity) (HCC) 09/19/2017 Obsessive behavior 12/02/2017 Seasonal allergies 06/17/2016 PAST SURGICAL HISTORY Procedure Laterality Date PAST SURGICAL HISTORY OF wisdom teeth removal, excess gum removal PAST SURGICAL HISTORY OF 02/2020 choleystectomy FAMILY HISTORY Problem Relation Age of Onset Cancer Mother thyroid and lung Thyroid Mother hypothyroid Skin Cancer Mother melanoma other (lung cancer) Mother Common on maternal side of family other (thryoid cancer) Mother COPD Father Diabetes Father Paternal side of family Coronary Artery Disease Brother 28 Diabetes Other paternal side Thyroid Other maternal side other (vitamin d issues) Other Social History Tobacco Use Smoking status: Never Smoker Smokeless tobacco: Never Used Vaping Use Vaping Use: Never used Substance Use Topics Alcohol use: Not Currently Drug use: No Prior to Admission medications as of 10/01/21 0807 Medication Sig Last Dose Taking levothyroxine (TIROSINT) 50 mcg cap Take 1 capsule by mouth daily before breakfast. Taking Yes amitriptyline (ELAVIL) 25 mg tablet Take 1 tablet by mouth daily at bedtime. Taking Yes Olopatadine (PATADAY) 0.2 % drop Use 1 Drop in both eyes as needed. Taking Yes [id number] (REFRESH OPTIVE ADVANCED) 0.5-1-0.5 % drop Use 1 Drop in the left eye four times daily. Taking Yes cholecalciferol (VITAMIN D-3) 5,000 unit tab Take 5,000 Units by mouth every 48 hours. Taking Yes Fexofenadine-Pseudoephedrine (MICAH-D 24 HOUR) 180-240 mg per 24 hr tablet Take 1 tablet by mouth once daily. Taking Yes No medication comments found. ALLERGIES Allergen Reactions Mmr [Other] Mental Status Change, Rash Penicillins Rash Objective PHYSICAL EXAM: General: alert and oriented (x3), healthy appearance and morbidly obese. Pertinent negatives noted - not distressed. Skin: normal color, no rash or lesions. HEENT: EOM intact and pupils equal round. Pertinent negatives noted - no carotid bruit. Cardiovascular: regular rate and rhythm, normal S1 and S2, no rub, murmurs, or gallop. Respiratory: normal breath sounds, no wheezes or crackles. No chest wall deformity or tenderness. Abdomen: soft. Pertinent negatives noted - not tender. Extremities: no deformity, no edema or tenderness, no joint swelling or clubbing. Neurological: normal cognition and motor skills. Gait normal. No weakness or sensory deficit. PAIN ASSESSMENT: VITALS: BP 110/80 Pulse 116 Temp (Src) 97.9 (Temporal) Resp 16 Ht 5' 4.5 (1.64m) Wt 253 lb (114.8kg) SpO2 98% LMP 08/18/2021 BMI 42.77 kg/(m^2). Diagnostic tests reviewed for today's visit: Lab Value Units Date High Low HB 13.3 g/dL 06/28/2021 15.5 11.5 HCT 43.9 % 06/28/2021 46.0 36.0 WBC 12.65 k/uL 06/28/2021 11.00 3.70 PLT 421 k/uL 06/28/2021 400 150 NA No results within date range. K No results within date range. GLUC No results within date range. BUN No results within date range. CREAT No results within date range. PTSEC No results within date range. INR No results within date range. APTT No results within date range. ALT No results within date range. AST No results within date range. TBILI No results within date range. TSH 1.510 uU/mL 06/28/2021 4.200 0.270 Lab Value Units Date High Low HCGQT No results within date range. UHCG No results within date range. HCG, BODY* No results within date range. Lab Value Units Date High Low ABORHD No results within date range. ABSCREEN No results within date range. Hemoglobin A1C (%) Date Value 10/03/2020 5.3 05/05/2019 5.4 No results found for this or any previous visit (from the past 8760 hour(s)). No results found for this or any previous visit (from the past 90398 hour(s)). Assessment Acquired hypothyroidism Assessment: stable on rx Autism Assessment: high functioning Frequent headaches Assessment: otc analgesics as needed Obesity, Class III, BMI 40-49.9 (morbid obesity) ([facility]) Assessment: Body mass index is 42.76 kg/m . GERD (gastroesophageal reflux disease) Assessment: otc rx as needed Situational depression Assessment: stable on rx per pt METS: Climb a flight of stairs or walk up a hill (5.50 METs) DASI Score: 5.5; Patient denies any chest pain or undue shortness of breath with the above physical activity. Clinical Frailty Scale: 3. Well, with treated comorbid disease ASA Class: 2 ANESTHESIA FINDINGS: Intubation History: No history of difficult intubation Significant Anesthesia Considerations: none Airway History: No history of difficult airway [id number] Score: Age: <65 Sex: Female CHF history: No Hypertension history: No Stroke/TIA/thromboembolism history: No Vascular disease history: No Diabetes history: No Score: 1 I - PHYSICAL EVALUATION AIRWAY Tracheostomy tube not present Mallampati: II. TM distance: >3 FB. Neck ROM: full ROM without neurological symptoms. Mouth opening: adequate. Short neck: no. Thick neck: no DENTAL Dental findings: teeth intact. II - ANESTHESIA PLAN ASA Score: 2 Anesthetic Plan: other Anesthetic plan additional comments: *PACC/TCI - anesthesia choice. Informed Consent Anesthetic risks, benefits, alternatives, personnel and consent discussed: yes. Patient / Responsible Constitution Party agrees to proceed: yes Patient / Surrogate agrees to blood products: blood products not planned Prepared for Surgery: optimally prepared for surgery, pending (see comment). Labs CONSULTS: Patient does not require consults for optimization at this time The Following Tests/Procedures Have Been Initiated: No orders of the defined types were placed in this encounter. Planned Anesthetic: other anesthesia choice Instructions Given to Patient: Instructions located in the after visit summary. Patient given verbal and written preop instructions and voices comprehension and compliance. SIGNATURE: Nicole Ortiz APRN.CNP PATIENT NAME: Celena Murray DATE: October 01, 2021 TIME: 8:25 AM PAGER/CONTACT #: documented in this encounter [facility] 10-01-2021 Instructions Nicole Ortiz APRN.CNP - 10/01/2021 8:24 AM EDT PATIENT PREOPERATIVE INSTRUCTIONS Jana Tong DPM has scheduled you for your procedure at this surgery center: [facility]: [phone] -- [address] [address]. Please read below carefully for your personalized instructions. Dietary Restrictions: - No solid food after midnight. - You may have 12 ounces of clear liquids (water, clear juices such as apple juice or gatorade, carbonated beverages, clear tea, black coffee, jello) until 2 hours before scheduled arrival at facility. No red/purple coloring and no creamer/sugar Medications: Unless instructed differently below, stay on all of your medications until your surgery. Approved medications to take the morning of surgery with a sip of water: Levothyroxine If you start any new medications after today's visit, please contact the surgeon's office. Blood Thinning Medications: - Stop NSAIDS (Ibuprofen, Advil, Aleve, Motrin, Celebrex, Mobic, etc.) 7 days before surgery, as directed by your surgeon. - Stop Aspirin 7 days before surgery, as directed by your surgeon. - Stop Vitamin E, ALL multi-vitamins, herbals and dietary supplements 7 days before surgery. - You may take Tylenol (Acetaminophen) or any of your pain medications that do not contain aspirin or NSAIDS as needed. Important Reminders: - If you use CPAP/BIPAP, bring the machine with you to the surgery center. - If you are prescribed inhalers for breathing, continue using them. - Candy, mints, and tobacco products are NOT permitted the morning of surgery. - Hearing aids, dentures and glasses may be worn the morning of surgery. - NO jewelry, body piercings, makeup, hairpins or contacts are to be worn the day of surgery. If you develop symptoms such as a fever, cold, or flu, or have other changes to your health within TWO DAYS of scheduled surgery or the morning of surgery, please contact the surgery center above. Personal Belongings: -Please have photo ID and insurance cards. -If you do not have a copy of advance directives on file with us, please bring a copy with you on the day of surgery. - Leave ALL valuables and money at home or with family members. For Outpatient Procedures: - YOU MUST HAVE A RESPONSIBLE TRIAL MANAGER TAKE YOU HOME. A JET WORKER OR PUBLIC HEALTH TECHNICIAN CANNOT BE MADE A RESPONSIBLE TRIAL MANAGER. - We recommend that a responsible person stays with you overnight to take care of you. - You cannot stay in a hotel alone after outpatient surgery. You will not be permitted to have your surgery, if you do not have someone to take care of you. Arrival Time for Surgery: - The Surgery Center or hospital where you are having surgery will call the afternoon before surgery (or Friday for Friday surgery) with a scheduled arrival time. - If you have not heard by 4 pm, please contact the surgery center above. Please be aware that emergency situations arise, which may delay or change your surgical time. If this happens, we will notify you as soon as possible and regret any inconvenience. If you already have an Advance Directive, please fax a copy to [phone] or email to for it to be added to your chart. If you do not have an Advance Directive, you can find the appropriate form and more information at [email or web address]. We recommend that you complete the Advance Directive form found on the website and bring it with you the day of your surgery. It can be witnessed and scanned into your chart that day. Nicole Ortiz APRN.ADELE documented in this encounter [facility] 09-21-2021 Miscellaneous Notes Patient scheduled for flexor tenotomy, R 4th and 5th toes at [facility] on 10/15/21. Patient aware of surgical date and post op appointments scheduled. Surgical letter sent to patient via [employer]. Surgical case request filed. documented in this encounter [facility] 09-18-2021 Note HNO ID: [id number] Author: Jana Tong Service: ? Author Type: Physician Type: Progress Notes Filed: 09/18/2021 12:06 PM Note Text: Follow up podiatric office visit for: Chief Complaint: This 26 year old who presents to clinic virtually for evaluation of hammertoe of right 4th and 5th toe Patient is seen virtually for follow-up hammertoe of right 4th and 5th toe. Patient has pain between the toes. She is interested in discussing surgical intervention. PAIN EVALUATION No data found in the last 1 encounters. Hemoglobin A1C Date Value Ref Range Status 10/03/2020 5.3 4.3 - 5.6 % Final Comment: [place] [employer] guidelines indicate that patients with HgbA1c in the range 5.7-6.4% are at increased risk for development of diabetes, and intervention by lifestyle modification may be beneficial. HgbA1c greater or equal to 6.5% is considered diagnostic of diabetes. PCP: Ant Rapp MD PAST MEDICAL HISTORY Diagnosis Date - Acquired hypothyroidism 03/08/2016 - Autism - Frequent headaches 03/13/2018 - Obesity, Class III, BMI 40-49.9 (morbid obesity) ([facility]) 09/19/2017 - Obsessive behavior 12/02/2017 - Seasonal allergies 06/17/2016 Current Outpatient Medications Medication Sig - levothyroxine (TIROSINT) 50 mcg cap Take 1 capsule by mouth daily before breakfast. - amitriptyline (ELAVIL) 25 mg tablet Take 1 tablet by mouth daily at bedtime. - Olopatadine (PATADAY) 0.2 % drop Use 1 Drop in both eyes as needed. - xrvfeotwuiwotjx-glenusb-vcyz22 (REFRESH OPTIVE ADVANCED) 0.5-1-0.5 % drop Use 1 Drop in the left eye four times daily. - cholecalciferol (VITAMIN D-3) 5,000 unit tab Take 5,000 Units by mouth every 48 hours. - Fexofenadine-Pseudoephedrine (MICAH-D 24 HOUR) 180-240 mg per 24 hr tablet Take 1 tablet by mouth once daily. No current facility-administered medications for this visit. ALLERGIES Allergen Reactions - Mmr [Other] Mental Status Change, Rash - Penicillins Rash PAST SURGICAL HISTORY Procedure Laterality Date - PAST SURGICAL HISTORY OF wisdom teeth removal, excess gum removal Physical Exam: Constitutional: Pt is a well developed 26 year old female who is alert, oriented, cooperative and in no apparent distress. OBJECTIVE: Dermatological: Nails 1-5 right are normal. Webspaces clean and dry 1-4 right. Skin appears well hydrated and supple. good color, texture, turgor. No open lesions present. No callosities present. Musculoskeletal/Orthopaedic: Patient has pain to palpation of right 4th and 5th toe Right 4th and 5th toe is contracted ASSESSMENT: (M20.41) Hammertoe of right foot (primary encounter diagnosis) (M79.674) Toe pain, right PLAN: Discussed hammertoe of right 4th and 5th toe. She has tried padding and wider shoes. She continues to have pain Discussed surgical options by way of attempted flexor tenotomy of 4th and 5th toe vs open hammertoe repair. This patient would like to try the tenotomy Informed her that if any bony adaption present, tenotomy alone may not be enough to correct deformity. She would like to try tenotomy. Discussed risks of procedure. Patient will plan to consent to proceed for flexor tenotomy Jana Tong DPM [facility] 09-18-2021 History of Presen t illness Narrative Follow up podiatric office visit for: Chief Complaint: This 26 year old who presents to clinic virtually for evaluation of hammertoe of right 4th and 5th toe Patient is seen virtually for follow-up hammertoe of right 4th and 5th toe. Patient has pain between the toes. She is interested in discussing surgical intervention. PAIN EVALUATION No data found in the last 1 encounters. Hemoglobin A1C Date Value Ref Range Status 10/03/2020 5.3 4.3 - 5.6 % Final Comment: [place] [employer] guidelines indicate that patients with HgbA1c in the range 5.7-6.4% are at increased risk for development of diabetes, and intervention by lifestyle modification may be beneficial. HgbA1c greater or equal to 6.5% is considered diagnostic of diabetes. PCP: Ant Rapp MD PAST MEDICAL HISTORY Diagnosis Date Acquired hypothyroidism 03/08/2016 Autism Frequent headaches 03/13/2018 Obesity, Class III, BMI 40-49.9 (morbid obesity) ([facility]) 09/19/2017 Obsessive behavior 12/02/2017 Seasonal allergies 06/17/2016 Current Outpatient Medications Medication Sig levothyroxine (TIROSINT) 50 mcg cap Take 1 capsule by mouth daily before breakfast. amitriptyline (ELAVIL) 25 mg tablet Take 1 tablet by mouth daily at bedtime. Olopatadine (PATADAY) 0.2 % drop Use 1 Drop in both eyes as needed. bwljdxoklazvxnt-hqbitrf-[id number] (REFRESH OPTIVE ADVANCED) 0.5-1-0.5 % drop Use 1 Drop in the left eye four times daily. cholecalciferol (VITAMIN D-3) 5,000 unit tab Take 5,000 Units by mouth every 48 hours. Fexofenadine-Pseudoephedrine (MICAH-D 24 HOUR) 180-240 mg per 24 hr tablet Take 1 tablet by mouth once daily. No current facility-administered medications for this visit. ALLERGIES Allergen Reactions Mmr [Other] Mental Status Change, Rash Penicillins Rash PAST SURGICAL HISTORY Procedure Laterality Date PAST SURGICAL HISTORY OF wisdom teeth removal, excess gum removal Physical Exam: Constitutional: Pt is a well developed 26 year old female who is alert, oriented, cooperative and in no apparent distress. OBJECTIVE: Dermatological: Nails 1-5 right are normal. Webspaces clean and dry 1-4 right. Skin appears well hydrated and supple. good color, texture, turgor. No open lesions present. No callosities present. Musculoskeletal/Orthopaedic: Patient has pain to palpation of right 4th and 5th toe Right 4th and 5th toe is contracted ASSESSMENT: (M20.41) Hammertoe of right foot (primary encounter diagnosis) (M79.674) Toe pain, right PLAN: Discussed hammertoe of right 4th and 5th toe. She has tried padding and wider shoes. She continues to have pain Discussed surgical options by way of attempted flexor tenotomy of 4th and 5th toe vs open hammertoe repair. This patient would like to try the tenotomy Informed her that if any bony adaption present, tenotomy alone may not be enough to correct deformity. She would like to try tenotomy. Discussed risks of procedure. Patient will plan to consent to proceed for flexor tenotomy Jana Tong DPM documented in this encounter [facility] 07-09-2021 Note HNO ID: [id number] Author: Jana Tong Service: ? Author Type: Physician Type: Progress Notes Filed: 07/09/2021 10:15 PM Note Text: Consultation requested by Dr. Albright for an opinion regarding right 4th toe pain. My final recommendations will be communicated back to the requesting physician by way of shared Medical record or letter to requesting physician via US mail. Initial Podiatric Office Visit: Chief Complaint: This 26 year old female who presents with chief complaint:right 4th toe pain HPI Patient presents to clinic for evaluation of right foot. Patient complains of pain to her right 4th toe. The toe has been turning inward for several years. As a result of the toe deformity, she tends to develop callus or skin overgrowth. She had been shaving with tissue nippers but she Has given up on shaving because the callus continues to return. 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 Patient has not tried any pads for the toe. She really has not tried much because she was unsure what the problems were. PAIN EVALUATION 07/09/2021 1343 Pain Level: 0 Hemoglobin A1C (%) Date Value 10/03/2020 5.3 05/05/2019 5.4 PCP: Ant Rapp MD PAST MEDICAL HISTORY Diagnosis Date - Acquired hypothyroidism 03/08/2016 - Autism - Frequent headaches 03/13/2018 - Obesity, Class III, BMI 40-49.9 (morbid obesity) ([facility]) 09/19/2017 - Obsessive behavior 12/02/2017 - Seasonal allergies 06/17/2016 Current Outpatient Medications Medication Sig - levothyroxine (TIROSINT) 50 mcg cap Take 1 capsule by mouth daily before breakfast. - amitriptyline (ELAVIL) 25 mg tablet Take 1 tablet by mouth daily at bedtime. - Olopatadine (PATADAY) 0.2 % drop Use 1 Drop in both eyes as needed. - fqygradzkkxpyaj-omjntur-nway51 (REFRESH OPTIVE ADVANCED) 0.5-1-0.5 % drop Use 1 Drop in the left eye four times daily. - cholecalciferol (VITAMIN D-3) 5,000 unit tab Take 5,000 Units by mouth every 48 hours. - Fexofenadine-Pseudoephedrine (MICAH-D 24 HOUR) 180-240 mg per 24 hr tablet Take 1 tablet by mouth once daily. No current facility-administered medications for this visit. ALLERGIES Allergen Reactions - Mmr [Other] Mental Status Change, Rash - Penicillins Rash PAST SURGICAL HISTORY Procedure Laterality Date - PAST SURGICAL HISTORY OF wisdom teeth removal, excess gum removal FAMILY HISTORY Problem Relation Age of Onset - Cancer Mother thyroid and lung - Thyroid Mother hypothyroid - Skin Cancer Mother melanoma - other (lung cancer) Mother Common on maternal side of family - other (thryoid cancer) Mother - COPD Father - Diabetes Father Paternal side of family - Coronary Artery Disease Brother 28 - Diabetes Other paternal side - Thyroid Other maternal side - other (vitamin d issues) Other Social History Tobacco Use - Smoking status: Never Smoker - Smokeless tobacco: Never Used Vaping Use - Vaping Use: Never used Substance Use Topics - Alcohol use: Yes - Drug use: No REVIEW OF SYSTEMS GENERAL: Negative for Malaise, significant weight loss, fever RESPIRATORY: Negative for cough, wheezing and shortness of breath CARDIOVASCULAR: Negative for chest pain, leg swelling and palpitations GI: Negative for abdominal discomfort, blood in stools or black stools and change in bowel habits : Negative for dysuria, frequency and incontinence MUSCULOSKELETAL: Negative for joint pain or swelling, back pain, and muscle pain. SKIN: Negative for lesions, rash, and itching. HEMATOLOGY/LYMPHOLOGY Negative for prolonged bleeding, bruising easily, and swollen nodes. ENDOCRINE: Negative for cold or heat intolerance, polyuria, polydipsia and goiter. NEURO: negative Physical Exam: Constitutional: Pt is a well developed 26 year old female who is alert, oriented and cooperative Eyes: Following during examination. No redness or drainage. Respiratory: RR normal and nonlabored. Even breathing. No evidence of distress or shortness of breath. Psychology: Patient is engaged during conversation. Normal affect and mood. Does not appear depressed or anxious during encounter. Vascular: Dorsalis pedis and posterior tibial pulses faintly palpable as b/l Capillary Fill time < 5 seconds to digits 1-5 b/l Skin temperature warm to cool proximal to distal b/l Hair growth present to digits Neurological: intact light touch/epicritic sensation b/l intact protective sensation no significant neurological deficits Dermatological: Nails 1-5 b/l appear normal. Webspaces clean and dry 1-4 b/l. Skin appears well hydrated and supple. good color, texture, turgor. No open lesions present. No callosities present. Musculoskeletal/Orthopaedic: Patient has pain to palpation of no Foot type is pronated structurally AJ ROM is full with knee extended and flexed 1st MPJ is full when loaded (more content not included)... [facility] 06-28-2021 Note HNO ID: [id number] Author: RT Isabell(R) Service: Nuclear Medicine Author Type: Technologist Type: Progress Notes Filed: 06/28/2021 4:50 PM Note Text: Radiology Service Progress Note PATIENT NAME: Celena Murray DATE OF SERVICE: June 28, 2021 TIME: 4:40 PM PATIENT IDENTITY VERIFICATION COMPLETED USING TWO (2) IDENTIFIERS: Name and Date of confirmed by patient verbally. FALL SCREENING: Has the patient had 2 falls in the last year or 1 fall with injury or currently using an Ambulatory Assistive Device (Walker, Cane, Wheelchair, Crutches, etc.)? No PATIENT GENDER DATA: Female. status: : No status: NO. PATIENT RELEVANT IMPLANT DATA REVIEWED: Not Applicable RADIOLOGY DEPARTMENT: General X-ray: Exam(s) Completed: Lower Extremity X-Ray(s): Foot, Right and Wt. Bearing PERIPHERAL IV DATA: Not applicable SIGNED BY: RT Isabell(R) June 28, 2021 4:50 PM [facility] documented in this encounter [facility] note* Diagnosis Hammer toe of right foot- Primary documented in this encounter [facility] note* Diagnosis Pre-operative examination- Primary Preoperative examination, unspecified Hammer toe, unspecified laterality Acquired hypothyroidism Unspecified hypothyroidism Autism Autistic disorder, current or active state Frequent headaches Obesity, Class III, BMI 40-49.9 (morbid obesity) (HCC) Morbid obesity Gastroesophageal reflux disease, unspecified whether esophagitis present Situational depression Adjustment disorder with depressed mood Hammer toe of right foot documented in this encounter [facility] note* Diagnosis Hammer toe of right foot- Primary Post-operative state Other postprocedural status documented in this encounter [facility] note* Diagnosis Hammer toe of right foot- Primary documented in this encounter [facility] note* Diagnosis Hammer toe of right foot- Primary Post-operative state Other postprocedural status documented in this encounter [facility] note* Diagnosis Hammer toe of right foot- Primary Post-operative state Other postprocedural status documented in this encounter [facility] note* Diagnosis Autism- Primary Autistic disorder, current or active state Borderline intellectual disability Other psychological or physical stress, not elsewhere classified Situational depression Adjustment disorder with depressed mood Obsessive behavior Obsessive-compulsive disorders Acquired hypothyroidism Unspecified hypothyroidism Gastroesophageal reflux disease, unspecified whether esophagitis present Frequent headaches Obesity, Class III, BMI 40-49.9 (morbid obesity) (HCC) Morbid obesity Encounter for gynecological examination without abnormal finding Routine gynecological examination documented in this encounter [facility] note* Diagnosis Acquired hypothyroidism- Primary Unspecified hypothyroidism Vitamin D deficiency Unspecified vitamin D deficiency documented in this encounter [facility] note* Diagnosis Acquired hypothyroidism Unspecified hypothyroidism documented in this encounter [facility] Summary Purpose Family History No Family History Records FoundNo Family History Records FoundNo Family History Records FoundNo Family History Records FoundNo Family History Records FoundNo Family History Records Found Advance Directives Documents on File Type Date Recorded Patient E Commerce Director Expl anation Advance Directive(s) 10/15/2021 8:28 AM Advance Directive(s) 10/11/2021 3:57 PM Procedure Findings Note Post Operative Note: PreOp D iagnosis: acute calculous cholecystitis Post- Procedure Diagnosis: acute calculous cholecystitis Procedure: laparoscopic cholecystectomy Surgeon: Jovanna Montaño MD Resident/Fellow/Other Bus Attendant: Lisette Araujo Estimated Blood Loss (mL): 10 Specimen: yes Findings: mildly inflamed edematous GB, large gallstone in neck Operative Report Dictated: Dictation: not applicable - note contains Operative Report Operative Report: INDICATIONS: 25 year old female who was experiencing biliary colic and was found to have large gallstone in the neck of GB and leukocytosis concerning for acute cholecystitis. Indications, risks, benefits of laparoscopic cholecystectomy were discussed and pt. agreeable to proceed with surgery. OPERATIVE NOTE: The patient was brought to the operating room and placed on the operating room table in supine position. She received preoperative antibiotics and DVT prophylaxis with subcutaneous heparin. A timeout was performed. General anesthesia wa (more content not included)... Additional Source Comments INFORMATION SOURCE (unrecogn ized section and content) DATE CREATED AUTHOR AUTHOR'S ORGANIZ ATION [facility]/26/2020 [facility] DATE CREATED AUTHOR AUTHOR'S ORGANIZ ATION 04/28/2020 [facility] DATE CREATED AUTHOR AUTHOR'S ORGANIZ ATION 10/17/2021 [facility] DATE CREATED AUTHOR AUTHOR'S ORGANIZ ATION 04/03/2022 [facility] DATE CREATED AUTHOR AUTHOR'S ORGANIZ ATION 05/22/2022 [facility] Source Comments (unrecognize d section and content) In the event this informatio n is protected by the Federal Confidentiality of Alcohol and Drug Abuse Patient Records regulations: The Federal rules restrict any use of the information to criminally investigate or prosecute any alcohol or drug abuse patient.[facility] the event this information is protected by the Federal Confidentiality of Alcohol and Drug Abuse Patient Records regulations: The Federal rules restrict any use of the information to criminally investigate or prosecute any alcohol or drug abuse patient.[facility] the event this information is protected by the Federal Confidentiality of Alcohol and Drug Abuse Patient Records regulations: The Federal rules restrict any use of the information to criminally investigate or prosecute any alcohol or drug abuse patient.[facility] the event this information is protected by the Federal Confidentiality of Alcohol and Drug Abuse Patient Records regulations: The Federal rules restrict any use of the information to criminally investigate or prosecute any alcohol or drug abuse patient.[facility] the event this information is protected by the Federal Confidentiality of Alcohol and Drug Abuse Patient Records regulations: The Federal rules restrict any use of the information to criminally investigate or prosecute any alcohol or drug abuse patient.[facility] the event this information is protected by the Federal Confidentiality of Alcohol and Drug Abuse Patient Records regulations: The Federal rules restrict any use of the information to criminally investigate or prosecute any alcohol or drug abuse patient.[facility] the event this information is protected by the Federal Confidentiality of Alcohol and Drug Abuse Patient Records regulations: The Federal rules restrict any use of the information to criminally investigate or prosecute any alcohol or drug abuse patient.[facility] the event this information is protected by the Federal Confidentiality of Alcohol and Drug Abuse Patient Records regulations: The Federal rules restrict any use of the information to criminally investigate or prosecute any alcohol or drug abuse patient.[facility] the event this information is protected by the Federal Confidentiality of Alcohol and Drug Abuse Patient Records regulations: The Federal rules restrict any use of the information to criminally investigate or prosecute any alcohol or drug abuse patient.[facility] the event this information is protected by the Federal Confidentiality of Alcohol and Drug Abuse Patient Records regulations: The Federal rules restrict any use of the information to criminally investigate or prosecute any alcohol or drug abuse patient.[facility] the event this information is protected by the Federal Confidentiality of Alcohol and Drug Abuse Patient Records regulations: The Federal rules restrict any use of the information to criminally investigate or prosecute any alcohol or drug abuse patient.[facility] the event this information is protected by the Federal Confidentiality of Alcohol and Drug Abuse Patient Records regulations: The Federal rules restrict any use of the information to criminally investigate or prosecute any alcohol or drug abuse patient.[facility] the event this information is protected by the Federal Confidentiality of Alcohol and Drug Abuse Patient Records regulations: The Federal rules restrict any use of the information to criminally investigate or prosecute any alcohol or drug abuse patient.[facility] the event this information is protected by the Federal Confidentiality of Alcohol and Drug Abuse Patient Records regulations: The Federal rules restrict any use of the information to criminally investigate or prosecute any alcohol or drug abuse patient.[facility] the event this information is protected by the Federal Confidentiality of Alcohol and Drug Abuse Patient Records regulations: The Federal rules restrict any use of the information to criminally investigate or prosecute any alcohol or drug abuse patient.[facility] the event this information is protected by the Federal Confidentiality of Alcohol and Drug Abuse Patient Records regulations: The Federal rules restrict any use of the information to criminally investigate or prosecute any alcohol or drug abuse patient.[facility] the event this information is protected by the Federal Confidentiality of Alcohol and Drug Abuse Patient Records regulations: The Federal rules restrict any use of the information to criminally investigate or prosecute any alcohol or drug abuse patient.[facility] Hospital[facility] the event this information is protected by the Federal Confidentiality of Alcohol and Drug Abuse Patient Records regulations: The Federal rules restrict any use of the information to criminally investigate or prosecute any alcohol or drug abuse patient.[facility] the event this information is protected by the Federal Confidentiality of Alcohol and Drug Abuse Patient Records regulations: The Federal rules restrict any use of the information to criminally investigate or prosecute any alcohol or drug abuse patient.[facility] Reason for Visit (unrecogniz ed section and content) Reason Comments Schedule Surgery Reason Comments Consult Reason Comments Results Reason Comments Patient Update Reason Comments Established Patient Follow Up Post Op Reason Comments Post Op Flexor Tenotomy Reason Comments Post Op Established Patient Reason Comments Pain Results Reason Comments Forms Reason Comments F/U 6 Month Reason Onset Date Comments Refill Request 05/06/2022 Reason Comments Thyroid Problem Reason Comments Refill Request Reason Onset Date Comments Refill Request 06/18/2023 Care Teams (unrecognized sec tion and content) Oil Agent Relationship Specialty Start Date End Date Ant Rapp MD [address] [place] [address] PCP - General Family Practice 06/02/17 Oil Agent Relationship Specialty Start Date End Date Ant Rapp MD [address] [place] [address] PCP - General Family Practice 06/02/17 Oil Agent Relationship Specialty Start Date End Date Ant Rapp MD [facility] [place] [address] PCP - General Family Practice 06/02/17 Oil Agent Relationship Specialty Start Date End Date Ant Rapp MD [facility] [place] [address] PCP - General Family Practice 06/02/17 Oil Agent Relationship Specialty Start Date End Date Ant Rapp MD [address] [place] [address], [place] [address] PCP - General Family Practice 06/02/17 Oil Agent Relationship Specialty Start Date End Date Ant Rapp MD [address] [place] [address] [place] [address] PCP - General Family Practice 06/02/17 Oil Agent Relationship Specialty Start Date End Date Ant Rapp MD [facility] [place] [address] PCP - General Family Practice 06/02/17 Oil Agent Relationship Specialty Start Date End Date Ant Rapp MD [facility] [place] [address] PCP - General Family Practice 06/02/17 Oil Agent Relationship Specialty Start Date End Date Ant Rapp MD [address] [place] [address] [place] [address] PCP - General Family Practice 06/02/17 Oil Agent Relationship Specialty Start Date End Date Ant Rapp MD [address] [place] [address] [place] [address] PCP - General Family Practice 06/02/17 Oil Agent Relationship Specialty Start Date End Date Ant Rapp MD [address] [facility] [place], [place] [id number] PCP - General Family Medicine 06/02/17 Oil Agent Relationship Specialty Start Date End Date Ant Rapp MD [address] [place] [address] PCP - General Family Medicine 06/02/17 Oil Agent Relationship Specialty Start Date End Date Ant Rapp MD [address] [place] [address] PCP - General Family [facility] 06/02/17 Oil Agent Relationship Specialty Start Date End Date Ant Rapp MD [address] [facility] [place], [place] [address] PCP - General [facility] 06/02/17 Oil Agent Relationship Specialty Start Date End Date Ant Rapp MD [address] [facility] [place], [place] [address] PCP - General Family Medicine 06/02/17 FOR RECORDS PERTAINING TO PATIENTS WHO ARE OR HAVE BEEN ENROLLED IN A CHEMICAL DEPENDENCY/SUBSTANCEABUSE PROGRAM, SOME INFORMATION MAY BE OMITTED. This clinical summary was aggregated from multiple sources. Caution should be exercised in using it in the provision of clinical care. This summary normalizes information from multiple sources, and as a consequence, information in this document may materially change the coding, format and clinical context of patient data. In addition, data may be omitted in some cases. CLINICAL DECISIONS SHOULD BE BASED ON THE PRIMARY CLINICAL RECORDS. [facility] [employer] provides no warranty or guarantee of the accuracy or completeness of information in this document.
[2023-08-14 10:09] LABS: HPV APTIMA, High Risk Negative (Negative)
== END | disposition home or self-care (01) ==
LOC: LABSPEC 12:04
PROVIDERS: PCP Family Medicine; Referring Provider Obstetrics & Gynecology; Visit Provider Obstetrics & Gynecology
DX: Z12.4 Encounter for screening for malignant neoplasm of cervix (principal)
CPT/HCPCS: 87624; 88175; G0145